=== PATIENT | male | born 1970 | race Caucasian/White ===

== ENCOUNTER 2019-04-18 10:34 | Inpatient (IN) | payer MEDICAID, OTHER ==
[2019-04-18] MEDS ORDERED: Adacel Vial IM ONE ×2 (10:48→11:06)
[2019-04-18] MEDS ORDERED: Vancomycin 1GM/ Ns 250ML*** 1 GM/250 ML IVPB IV SCH (11:00)
[2019-04-18] MEDS ORDERED: Vancomycin 1GM/ Ns 250ML*** 0 ML IV ONE (11:07)
--- NOTE | 2019-04-18 11:08 | ERPHSYRPT ---
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 Patient A+O X3. Patient's skin pink, warm and dry. Patient complains of right lower leg pain. Patient has right lower leg swelling and redness and warmth. Pulse present. Patient complains of constant pressure pain 10/10. Physician History: Right knee pain and cellulitis. 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 External pain only. Location: right leg Quality: cellulitis Radiation: down right leg Severity: moderate Duration: 2-3 days Timing: gradual Modifying factors/associated signs and symptoms: none tried Allergies/Adverse Reactions: No Known Drug Allergies Allergy (Unverified 04/18/19 10:45) Home Medications: Amiodarone HCl 1 tab PO DAILY 04/18/19 [History] Lisinopril 20 mg [Zestril 20 MG] 1 tab PO DAILY 04/18/19 [History] Metoprolol Tartrate 25 mg [Lopressor 25MG Tab] 1 tab PO DAILY 04/18/19 [ History] Rivaroxaban [Xarelto] 1 tab PO DAILY 04/18/19 [History] Hx Influenza Vaccination/Date Given: No Hx Pneumococcal Vaccination/Date Given: No Immunizations Up to Date: Yes - Review of Systems Constitutional: No Fever, No Chills Eyes: No Symptoms Ears, Nose, & Throat: No Symptoms Respiratory: No Cough, No Dyspnea Cardiac: No Chest Pain, No Edema, No Syncope Abdominal/Gastrointestinal: No Abdominal Pain, No Nausea, No Vomiting, No Diarrhea Genitourinary Symptoms: No Dysuria Musculoskeletal: Other (right knee pain and cellulitis ), No Back Pain, No Neck Pain Skin: No Rash Neurological: No Dizziness, No Focal Weakness, No Sensory Changes Psychological: No Symptoms Endocrine: No Symptoms All Other Systems: Reviewed and Negative - Past Medical History Pertinent Past Medical History: No Neurological History: No Pertinent History ENT History: No Pertinent History Cardiac History: Arrhythmia, Congestive Heart Failure, Hypertension Respiratory History: No Pertinent History Endocrine Medical History: No Pertinent History Musculoskeletal History: No Pertinent History GI Medical History: No Pertinent History History: No Pertinent History Psycho-Social History: No Pertinent History Male Reproductive Disorders: No Pertinent History - Past Surgical History Past Surgical History: No Neuro Surgical History: No Pertinent History Cardiac: No Pertinent History Respiratory: No Pertinent History Gastrointestinal: No Pertinent History Genitourinary: No Pertinent History Musculoskeletal: No Pertinent History Male Surgical History: No Pertinent History - Social History Smoking Status: Current every day smoker How long have you smoked: years Exposure to second hand smoke: Yes Drug Use: none Patient Lives Alone: No (Care Home) - Nursing Vital Signs Nursing Vital Signs: Initial Vital Signs Temperature 98.9 F 04/18/19 10:46 Pulse Rate 121 H 04/18/19 10:46 Respiratory Rate 20 04/18/19 10:46 Blood Pressure 116/76 04/18/19 10:46 O2 Sat by Pulse Oximetry 97 04/18/19 10:46 Pain Scale Pain Intensity 10 - Physical Exam SpO2: 97 Comments: 04/18/19 11:06 Physical Exam Vitals signsand nursing notereviewed. Constitutional: Appearance: She is well-developed. HENT: Head: Normocephalicand atraumatic. Eyes: Conjunctiva/sclera: Conjunctivae normal. Neck: Musculoskeletal: Normal range of motion. Trachea: No tracheal deviation. Cardiovascular: Rate and Rhythm: Normal rate. Pulmonary: Effort: Pulmonary effort is normal. Norespiratory distress. Abdominal: Palpations: Abdomen is soft. Musculoskeletal: General: No deformity. right lower leg cellulitis. no obvious abscess or flucant area. No obvious deformity, sensation intact, 2+ capillary refill, 2 point tactile discrimination intact. 5 out of 5 strength. Full range of motion without pain. Compartments are soft, nontender. Overlying skin shows no tenting, bruising, ecchymosis. Skin: General: Skin is warmand dry. Neurological: Mental Status: She is alertand oriented to person, place, and time. Psychiatric: Behavior: Behaviornormal. Ordered Tests: Active Orders 24 hr Category Date Time Status Code Status Order ROUTINE Care 04/18/19 11:50 Ordered Fall Protocol ROUTINE Care 04/18/19 11:52 Ordered IV Care Q6H Care 04/18/19 11:50 Ordered IV Insertion STAT Care 04/18/19 10:[address] in Observation ROUTINE Care 04/18/19 11:50 Ordered Wound Care STAT Care 04/18/19 10:48 Active BLOOD CULTURE Stat Lab 04/18/19 11:10 Received CBC W DIFF AM.LAB Lab 04/19/19 04:00 Ordered CBC W DIFF Stat Lab 04/18/19 11:00 Completed CMP AM.LAB Lab 04/19/19 04:00 Ordered CMP Stat Lab 04/18/19 11:00 Completed Lactic Acid AM.LAB Lab 04/19/19 04:00 Ordered Lactic Acid Stat Lab 04/18/19 11:03 Completed Manual Differential NC Stat Lab 04/18/19 11:00 Completed Medication Summary Generic Name Dose Route Start Last Admin Trade Name Freq PRN Reason Stop Dose Admin Vancomycin HCl 2 gm in 400 mls @ 200 mls/hr 04/18/19 11:30 04/18/19 11:17 Vancomycin 2 Gram/400 Ml Bag IV 04/18/19 13:29 200 mls/hr 1130 SAVITA 200 mls/hr Administration Discontinued Medications Generic Name Dose Route Start Last Admin Trade Name Freq PRN Reason Stop Dose Admin Diphtheria/Tetanus/Acell Pertussis 0.5 ml 04/18/19 10:48 04/18/19 11:09 Adacel Vial IM 04/18/19 10:49 0.5 ml .ONCE ONE Administration Diphtheria/Tetanus/Acell Pertussis Confirm 04/18/19 11:06 Adacel Vial Administered 04/18/19 11:07 Dose 0.5 ml IM .STK-MED ONE Vancomycin HCl Confirm 04/18/19 11:07 Vancomycin 1gm/ Ns 250ml Administered 04/18/19 11:08 Dose 250 mls @ ud IV .STK-MED ONE Lab/Rad Data: Laboratory Result Diagrams 04/18/19 11:00 04/18/19 11:00 Laboratory Results 04/18/19 04/18/19 04/18/19 Range/Units 11:03 11:00 11:00 WBC 15.6 H (4.0-10.5) K/mm3 RBC 4.89 (4.1-5.6) M/mm3 Hgb 14.6 (12.5-18.0) gm/dl Hct 44.6 (42-50) % MCV 91.2 (78-100) fl MCH 29.9 (26-32) pg MCHC 32.7 (32-36) g/dl RDW 14.2 H (11.5-14.0) % Plt Count 234 (150-450) K/mm3 MPV 9.8 (7.5-11.0) fl Sodium 136 L (137-145) mmol/L Potassium 4.7 (3.5-5.1) mmol/L Chloride 102 (98-107) mmol/L Carbon Dioxide 26 (22-30) mmol/L Anion Gap 11.9 (5-15) MEQ/L BUN 15 (9-20) mg/dL Creatinine 1.00 (0.66-1.25) mg/dL Estimated GFR > 60.0 ML/MIN Glucose 101 (74-106) mg/dL Lactic Acid 0.9 (0.4-2.0) Calcium 9.5 (8.4-10.2) mg/dL Total Bilirubin 1.30 (0.2-1.3) mg/dL AST 201 H (17-59) U/L ALT 517 H (0-50) U/L Alkaline Phosphatase 102 (38-126) U/L Serum Total Protein 8.2 (6.3-8.2) g/dL Albumin 4.1 (3.5-5.0) g/dL - Progress Progress: improved Progress Note: 04/18/19 11:08 We will obtain basic labs, IV antibiotics, fluids. 04/18/19 11:53 Patient has elevated WBC and LFTs. LFTs elevation is new. He has no abdominal pain, N/V. This is new. I did discuss with Dr. Alfonso he will admit the patient and continue further workup for elevated LFTs and cellulitis. Low suspension for septic joint at this point in time. No joint effusion, pain with ROM of the right knee. Most likely just cellulitis at this point. Although , close monitoring is needed. After reviewing labs, appropriate imaging, discussion with patient and family. We decided the patient should be admitted to the hospital. I called the inpatient team discussed history, physical and results with them in detail. We decided on the plan of action and admission to [facility]. We agreed on appropriate consults and who would call them. Discussed with : Andie Will see patient in: hospital (observation) Counseled pt/family regarding: drug and/or alcohol abuse, lab results, diagnosis - Departure Departure Disposition: Observation Clinical Impression: Cellulitis of right leg Condition: Stable Critical Care Time: No Referrals: FARNAZ ALFONSO [Primary Care Provider] -
[2019-04-18 11:18] LABS: Hematocrit 44.6 % (42-50); Hemoglobin 14.6 gm/dl (12.5-18.0); Mean Cell Volume 91.2 fl (78-100); Mean Corpuscular Hemoglobin 29.9 pg (26-32); Mean Corpuscular Hgb Concent. 32.7 g/dl (32-36); Mean Platelet Volume 9.8 fl (7.5-11.0); Platelet Count 234 K/mm3 (150-450); Red Blood Count 4.89 M/mm3 (4.1-5.6); Red Cell Distribution Width 14.2 % (11.5-14.0); White Blood Count 15.6 K/mm3 (4.0-10.5)
[2019-04-18] MEDS ORDERED: VANCOMYCIN 2 GRAM/400 ML BAG 2 GM/400 ML PIGGYBACK IV SCH (11:30)
[2019-04-18 11:31] LABS: ALBUMIN 4.1 g/dL (3.5-5.0); ALKALINE PHOSPHATASE 102 U/L (38-126); ANION GAP 11.9 MEQ/L (5-15); BLOOD UREA NITROGEN 15 mg/dL (9-20); CHLORIDE 102 mmol/L (98-107); Calcium 9.5 mg/dL (8.4-10.2); Carbon Dioxide 26 mmol/L (22-30); Glucose 101 mg/dL (74-106); Potassium 4.7 mmol/L (3.5-5.1); SGOT/AST 201 U/L (17-59); SGPT/ALT 517 U/L (0-50); SODIUM 136 mmol/L (137-145); Total Protein 8.2 g/dL (6.3-8.2)
[2019-04-18] MEDS ORDERED: MORPHINE SULFATE 2 MG INJ IV PRN (11:50)
[2019-04-18 11:57] LABS: ANISOCYTOSIS 1+; Eosinophil 1 % (0.00-3.0); Lymphocytes 19 % (24-44); Monocyte 5 % (0.0-12.0); Neutrophils 75 % (36.-66.); Platelet Estimate NORMAL (NORMAL); Total Cells Counted 100
[2019-04-18] MEDS: BACTRIM DS TABLET PO SCH ×2 (16:06→20:34)
[2019-04-18] MEDS ORDERED: TYLENOL EXTRA STRENGTH 500 MG ONE (16:37)
[2019-04-18] MEDS: TYLENOL EXTRA STRENGTH 500 MG PO SCH (17:05)
[2019-04-18] MEDS: VANCOMYCIN 2 GRAM/400 ML BAG 2 GM/400 ML PIGGYBACK IV SCH (20:33)
[2019-04-18] MEDS: Cordarone 200 MG PO SCH (20:34)
[2019-04-18] MEDS ORDERED: KEFLEX 500 MG PO SCH (22:00)
[2019-04-19] MEDS: BACTRIM DS TABLET PO SCH ×3 (00:03→21:43)
[2019-04-19 05:05] LABS: Hemoglobin 13.7 gm/dl (12.5-18.0); Mean Cell Volume 90.5 fl (78-100); Mean Corpuscular Hemoglobin 30.2 pg (26-32); Mean Corpuscular Hgb Concent. 33.4 g/dl (32-36); Mean Platelet Volume 10.1 fl (7.5-11.0); Platelet Count 224 K/mm3 (150-450); Red Blood Count 4.53 M/mm3 (4.1-5.6); Red Cell Distribution Width 14.3 % (11.5-14.0); White Blood Count 14.9 K/mm3 (4.0-10.5)
[2019-04-19 05:19] LABS: ALBUMIN 3.8 g/dL (3.5-5.0); ALKALINE PHOSPHATASE 92 U/L (38-126); ANION GAP 12.4 MEQ/L (5-15); BLOOD UREA NITROGEN 18 mg/dL (9-20); CHLORIDE 102 mmol/L (98-107); Carbon Dioxide 23 mmol/L (22-30); Creatinine 1 1.01 mg/dL (0.66-1.25); Glucose 100 mg/dL (74-106); Potassium 4.5 mmol/L (3.5-5.1); SGOT/AST 129 U/L (17-59); SGPT/ALT 376 U/L (0-50); SODIUM 133 mmol/L (137-145); Total Protein 7.8 g/dL (6.3-8.2)
[2019-04-19 05:53] LABS: Lymphocytes 29 % (24-44); Monocyte 5 % (0.0-12.0); Neutrophils 66 % (36.-66.); Total Cells Counted 100
[2019-04-19 05:54] LABS: Platelet Estimate NORMAL (NORMAL)
[2019-04-19 09:08] LABS: HEPATITIS A IGM Non Reactive (Non Reactive); HEPATITIS B VIRUS CORE TOT AB Reactive (Non Reactive); HEPATITIS C VIRUS ANTIBODY Weak Reactive (Non Reactive); Hepatitis B Surface Ab.Quant. 4.51 mIU/mL (0.00-8.49); Hepatitis B Surface Antigen Non Reactive (Non Reactive)
[2019-04-19] MEDS: VANCOMYCIN 2 GRAM/400 ML BAG 2 GM/400 ML PIGGYBACK IV SCH ×2 (09:37→21:42)
[2019-04-19] MEDS: Lopressor 25MG Tab PO SCH (09:37)
[2019-04-19] MEDS: TYLENOL EXTRA STRENGTH 500 MG PO SCH (09:37)
[2019-04-19] MEDS: XARELTO 10 MG TABLET PO SCH (09:38)
[2019-04-19] MEDS: Cordarone 200 MG PO SCH ×2 (09:38→21:43)
[2019-04-19] MEDS: Zestril 20 MG PO SCH (09:38)
[2019-04-19] MEDS ORDERED: RIVAROXABAN PO SCH (10:00)
--- NOTE | 2019-04-19 11:38 | PCM.NOTE ---
Date and Time: 04/19/19 8606 Subjective Assessment: I am seeing patient today for Dr Alfonso. Patient states he is tolerating IV vancomycin. His right knee is sore and feeling feverish. Is eating a regular diet . No V/D. Has Hx ETOH abuse states 10 years ago or so he drank whiskey daily but no ETOH abuse for years. Discussed the mild elevation of liver enzymes. Patient is asymptomatic ,no abdominal pain or greasy food intolerance.Patient states he had an abcess mid chest a few years ago. - Review of Systems Constitutional: Other (c/o feeling feverish ) Respiratory: No Symptoms Cardiac: No Symptoms Abdominal/Gastrointestinal: No Symptoms Skin: Cellulitis (right knee/leg) Objective Exam General Appearance: no apparent distress, mild distress Neurologic Exam: alert, oriented x 3, cooperative, normal mood/affect Skin Exam: other (right knee with central pustule and surrounding redness and increased temp.slightly less than the line drawn in ER.) Wound Assessment: Skin/Wound Assessment Wound/Incision Assessment Start: 04/18/19 12: 19 Text: Status: Active Freq: Q6H Protocol: Document 04/19/19 08:00 DS (Rec: 04/19/19 09:01 DS [id number]) Wound/Incision Assessment Right Anterior Thigh Wound Assessment Shift Assessment Wound Type cellulitis Wound Stage Non Pressure Wound Drainage Amount None Drainage Odor None/Absent Surrounding Tissue [place] Comment reddened, warm to touch, no drainage, small abrasion to knee, small bump noted inner aspect by side of knee Wound Photo Photo Taken No Wound/Incision Assessment Start: 04/18/19 13: 04 Text: Status: Active Freq: Q6H Protocol: Document 04/19/19 08:00 DS (Rec: 04/19/19 09:01 DS [id number]) Respiratory Exam: normal breath sounds, lungs clear Cardiovascular Exam: regular rate/rhythm OBJECTIVE DATA Vital Signs: Vital Signs - 24 hr Temp Pulse Resp BP Pulse Ox 04/19/19 08:00 99.8 F 148 H 18 125/58 95 04/19/19 04:00 100.4 F 143 H 18 110/64 96 04/19/19 00:08 99.9 F 140 H 18 102/61 93 L 04/18/19 20:00 99.6 F 70 20 122/80 95 04/18/19 16:48 97.8 F 135 H 28 H 138/82 04/18/19 16:00 101.5 F 83 18 144/69 97 04/18/19 12:26 99.3 F 113 H 18 111/72 98 04/18/19 12:21 99.3 F 113 H 18 111/72 98 04/18/19 11:55 97 04/18/19 11:36 115 H 18 112/69 96 Pain Assessment - Last Documented Pain Intensity 3 Pain Scale Used 0-10 Pain Scale Intake and Output: Intake & Output 04/16/19 04/17/19 04/18/19 04/19/19 11:59 11:59 11:59 11:59 Intake Total 3256 Balance 3256 Weight 108.862 kg 108.862 kg Lab Results: Lab Results-Last 24 Hours 04/18/19 04/18/19 04/18/19 Range/Units 11:00 11:00 Unknown WBC (4.0-10.5) K/mm3 RBC (4.1-5.6) M/mm3 Hgb (12.5-18.0) gm/dl Hct (42-50) % MCV (78-100) fl MCH (26-32) pg MCHC (32-36) g/dl RDW (11.5-14.0) % Plt Count (150-450) K/mm3 MPV (7.5-11.0) fl Segmented Neutrophils 75 H (36.-66.) % Lymphocytes (Manual) 19 L (24-44) % Monocytes (Manual) 5 (0.0-12.0) % Eosinophils (Manual) 1 (0.00-3.0) % Platelet Estimate NORMAL (NORMAL) RBC Morphology ABNORMAL Anisocytosis 1+ Sodium 136 L (137-145) mmol/L Potassium 4.7 (3.5-5.1) mmol/L Chloride 102 (98-107) mmol/L Carbon Dioxide 26 (22-30) mmol/L Anion Gap 11.9 (5-15) MEQ/L BUN 15 (9-20) mg/dL Creatinine 1.00 (0.66-1.25) mg/dL Estimated GFR > 60.0 ML/MIN Glucose 101 (74-106) mg/dL Lactic Acid (0.4-2.0) Calcium 9.5 (8.4-10.2) mg/dL Total Bilirubin 1.30 (0.2-1.3) mg/dL AST 201 H (17-59) U/L ALT 517 H (0-50) U/L Alkaline Phosphatase 102 (38-126) U/L Serum Total Protein 8.2 (6.3-8.2) g/dL Albumin 4.1 (3.5-5.0) g/dL Hepatitis A IgM Ab Non Reactive (Non Reactive) Hep Bs Antigen Non Reactive (Non Reactive) Hep Bs Antibody, Quant 4.51 (0.00-8.49) mIU/mL Hep B Core Total Ab Reactive H (Non Reactive) Hepatitis C Antibody Weak Reactive H (Non Reactive) 04/19/19 04/19/19 04/19/19 Range/Units 04:25 04:25 04:50 WBC 14.9 H (4.0-10.5) K/mm3 RBC 4.53 (4.1-5.6) M/mm3 Hgb 13.7 (12.5-18.0) gm/dl Hct 41.0 L (42-50) % MCV 90.5 (78-100) fl MCH 30.2 (26-32) pg MCHC 33.4 (32-36) g/dl RDW 14.3 H (11.5-14.0) % Plt Count 224 (150-450) K/mm3 MPV 10.1 (7.5-11.0) fl Segmented Neutrophils 66 (36.-66.) % Lymphocytes (Manual) 29 (24-44) % Monocytes (Manual) 5 (0.0-12.0) % Eosinophils (Manual) (0.00-3.0) % Platelet Estimate NORMAL (NORMAL) RBC Morphology NORMAL Anisocytosis Sodium 133 L (137-145) mmol/L Potassium 4.5 (3.5-5.1) mmol/L Chloride 102 (98-107) mmol/L Carbon Dioxide 23 (22-30) mmol/L Anion Gap 12.4 (5-15) MEQ/L BUN 18 (9-20) mg/dL Creatinine 1.01 (0.66-1.25) mg/dL Estimated GFR > 60.0 ML/MIN Glucose 100 (74-106) mg/dL Lactic Acid 1.0 (0.4-2.0) Calcium 9.0 (8.4-10.2) mg/dL Total Bilirubin 0.80 (0.2-1.3) mg/dL AST 129 H (17-59) U/L ALT 376 H (0-50) U/L Alkaline Phosphatase 92 (38-126) U/L Serum Total Protein 7.8 (6.3-8.2) g/dL Albumin 3.8 (3.5-5.0) g/dL Hepatitis A IgM Ab (Non Reactive) Hep Bs Antigen (Non Reactive) Hep Bs Antibody, Quant (0.00-8.49) mIU/mL Hep B Core Total Ab (Non Reactive) Hepatitis C Antibody (Non Reactive) Multi-Disciplinary Progress Notes: Multi-Disciplinary Progress Notes 04/19/19 08:29 Case Management Note by Nilsa Sanchez per Migdalia patient is under custody of [facility] and will return there upon DC Initialized on 04/19/19 08:29 - END OF NOTE Assessment/Plan (1) Cellulitis of right leg Current Visit: Yes Status: Acute Assessment & Plan: continue Vancomycin IV,treat with [place] shower today and tomorrow and start Bactroban intranasal x 2 weeks Code(s): L03.115 - CELLULITIS OF RIGHT LOWER LIMB (2) Elevated liver function tests Current Visit: Yes Status: Acute Assessment & Plan: Hx ETOH abuse. Hepatitis profile pending. Code(s): R94.5 - ABNORMAL RESULTS OF LIVER FUNCTION STUDIES
[2019-04-19] MEDS: Bactroban OINTMENT TP SCH ×2 (15:49→21:43)
[2019-04-19] MEDS: TYLENOL 325 MG PO PRN (19:33)
[2019-04-20] MEDS ORDERED: TROUGH DRUG LEVELS IJ ONE (09:30)
[2019-04-20] MEDS: Cordarone 200 MG PO SCH ×2 (09:58→21:53)
[2019-04-20] MEDS: BACTRIM DS TABLET PO SCH ×2 (09:58→21:53)
[2019-04-20] MEDS: XARELTO 10 MG TABLET PO SCH (09:59)
[2019-04-20] MEDS: TYLENOL EXTRA STRENGTH 500 MG PO SCH (09:59)
[2019-04-20] MEDS: Zestril 20 MG PO SCH (09:59)
[2019-04-20] MEDS: Lopressor 25MG Tab PO SCH (09:59)
[2019-04-20] MEDS: Bactroban OINTMENT TP SCH ×2 (10:03→21:53)
--- NOTE | 2019-04-20 10:21 | XRAY ---
Indication: Anterior knee pain and swelling. Two-dimensional sonogram and color Doppler imaging of the major venous vessels of the right leg was performed. Comparison: None No thrombus seen in the examined deep venous vessels of the right leg including greater saphenous vein. Veins demonstrate normal compressibility. Venous waveforms are normal with and without augmentation. Targeted soft tissue ultrasound over region of pain/swelling demonstrates nonspecific subcutaneous fluid collection measuring 5.3 cm in length and 0.9 cm in thickness. Impression: 1. Right leg negative for DVT. 2. Nonspecific subcutaneous fluid collection over region of pain/swelling.
[2019-04-20] MEDS: VANCOMYCIN 2 GRAM/400 ML BAG 2 GM/400 ML PIGGYBACK IV SCH ×2 (10:45→21:52)
[2019-04-20] MEDS: TYLENOL 325 MG PO PRN (18:42)
[2019-04-21 05:00] LABS: Absolute Neutrophil Ct (ANC) 5.22 (1.4-6.9); BASOPHIL % 0.6 % (0.0-0.4); Basophil (Absolute #) 0.05 (0-0.4); Eosinophil % 6.4 % (0.00-5.0); Eosinophil (Absolute #) 0.55 (0-0.5); Hematocrit 38.1 % (42-50); Hemoglobin 12.3 gm/dl (12.5-18.0); Lymphocyte (Absolute #) 1.66 (1.0-4.6); Lymphocytes % 19.2 % (24.0-44.0); Mean Cell Volume 93.4 fl (78-100); Mean Corpuscular Hemoglobin 30.1 pg (26-32); Mean Corpuscular Hgb Concent. 32.3 g/dl (32-36); Mean Platelet Volume 9.7 fl (7.5-11.0); Monocyte (Absolute #) 1.18 (0.0-1.3); Monocytes % 13.6 % (0.0-12.0); Neutrophil % 60.2 % (36.0-66.0); Platelet Count 215 K/mm3 (150-450); Red Blood Count 4.08 M/mm3 (4.1-5.6); Red Cell Distribution Width 14.1 % (11.5-14.0); White Blood Count 8.7 K/mm3 (4.0-10.5)
[2019-04-21 05:08] LABS: ALBUMIN 3.5 g/dL (3.5-5.0); ALKALINE PHOSPHATASE 81 U/L (38-126); ANION GAP 9.8 MEQ/L (5-15); BLOOD UREA NITROGEN 13 mg/dL (9-20); CHLORIDE 104 mmol/L (98-107); Calcium 8.9 mg/dL (8.4-10.2); Carbon Dioxide 27 mmol/L (22-30); Creatinine 1 0.89 mg/dL (0.66-1.25); Glucose 93 mg/dL (74-106); Potassium 4.9 mmol/L (3.5-5.1); SGOT/AST 118 U/L (17-59); SGPT/ALT 277 U/L (0-50); SODIUM 136 mmol/L (137-145); Total Protein 7.3 g/dL (6.3-8.2)
[2019-04-21] MEDS: Zestril 20 MG PO SCH (10:43)
[2019-04-21] MEDS: Cordarone 200 MG PO SCH ×2 (10:43→22:25)
[2019-04-21] MEDS: XARELTO 10 MG TABLET PO SCH (10:43)
[2019-04-21] MEDS: BACTRIM DS TABLET PO SCH ×2 (10:44→22:25)
[2019-04-21] MEDS: Lopressor 25MG Tab PO SCH (10:44)
[2019-04-21] MEDS: Bactroban OINTMENT TP SCH ×2 (10:44→22:25)
[2019-04-21] MEDS: TYLENOL EXTRA STRENGTH 500 MG PO SCH (10:44)
[2019-04-21] MEDS: VANCOMYCIN 2 GRAM/400 ML BAG 2 GM/400 ML PIGGYBACK IV SCH ×2 (10:45→22:25)
[2019-04-22 06:17] LABS: BASOPHIL % 1.1 % (0.0-0.4); Basophil (Absolute #) 0.06 (0-0.4); Eosinophil % 10.6 % (0.00-5.0); Eosinophil (Absolute #) 0.58 (0-0.5); Hemoglobin 13.3 gm/dl (12.5-18.0); Lymphocyte (Absolute #) 1.42 (1.0-4.6); Mean Cell Volume 92.3 fl (78-100); Mean Corpuscular Hgb Concent. 32.4 g/dl (32-36); Mean Platelet Volume 10.3 fl (7.5-11.0); Monocytes % 14.7 % (0.0-12.0); Neutrophil % 47.6 % (36.0-66.0); Platelet Count 220 K/mm3 (150-450); Red Blood Count 4.44 M/mm3 (4.1-5.6); Red Cell Distribution Width 14.3 % (11.5-14.0); White Blood Count 5.5 K/mm3 (4.0-10.5)
[2019-04-22 06:37] LABS: ALBUMIN 3.6 g/dL (3.5-5.0); ALKALINE PHOSPHATASE 93 U/L (38-126); ANION GAP 11.2 MEQ/L (5-15); BLOOD UREA NITROGEN 11 mg/dL (9-20); CHLORIDE 105 mmol/L (98-107); Calcium 9.1 mg/dL (8.4-10.2); Carbon Dioxide 26 mmol/L (22-30); Creatinine 1 0.79 mg/dL (0.66-1.25); Glucose 96 mg/dL (74-106); Potassium 4.5 mmol/L (3.5-5.1); SGOT/AST 159 U/L (17-59); SGPT/ALT 317 U/L (0-50); SODIUM 137 mmol/L (137-145); Total Protein 7.6 g/dL (6.3-8.2)
[2019-04-22] MEDS: VANCOMYCIN 2 GRAM/400 ML BAG 2 GM/400 ML PIGGYBACK IV SCH ×2 (10:27→21:04)
[2019-04-22] MEDS: BACTRIM DS TABLET PO SCH ×2 (10:30→21:03)
[2019-04-22] MEDS: TYLENOL EXTRA STRENGTH 500 MG PO SCH (10:30)
[2019-04-22] MEDS: XARELTO 10 MG TABLET PO SCH (10:30)
[2019-04-22] MEDS: Cordarone 200 MG PO SCH ×2 (10:31→21:03)
[2019-04-22] MEDS: Lopressor 25MG Tab PO SCH (10:31)
[2019-04-22] MEDS: Zestril 20 MG PO SCH (10:31)
[2019-04-22] MEDS: Bactroban OINTMENT TP SCH ×2 (10:32→21:04)
[2019-04-23] MEDS: Lopressor 25MG Tab PO SCH (10:05)
[2019-04-23] MEDS: Zestril 20 MG PO SCH (10:05)
[2019-04-23] MEDS: XARELTO 10 MG TABLET PO SCH (10:05)
[2019-04-23] MEDS: TYLENOL EXTRA STRENGTH 500 MG PO SCH (10:05)
[2019-04-23] MEDS: BACTRIM DS TABLET PO SCH (10:05)
[2019-04-23] MEDS: VANCOMYCIN 2 GRAM/400 ML BAG 2 GM/400 ML PIGGYBACK IV SCH (10:05)
[2019-04-23] MEDS: Bactroban OINTMENT TP SCH (10:06)
[2019-04-23] MEDS: Cordarone 200 MG PO SCH (10:06)
[2019-04-23 14:16] VITALS: BP 139/82; PULSE 104; O2SAT 99
--- NOTE | 2019-04-24 13:23 | DS ---
DISCHARGE DIAGNOSIS: CELLULITIS AND WOUND ABSCESS OVER THE RIGHT KNEE. HOSPITAL COURSE: The patient is a 48 year-old white male who presented to the emergency room with complaints of pimple-like area on his right knee which became bright red and warm and extended extensively up and down the leg to about the mid-thigh and down to about the ankle. Bright red, warm and tender when he first arrived. The patient's pimple area did eventually develop an abscess which drained initially thick purulent material. The culture did return methicillin resistant staphylococcus aureus but it was sensitive to Bactrim and Levaquin. He had been treated with IV Vancomycin and Bactrim during his stay. The culture did show sensitivity to both Bactrim and Vancomycin. After the wound started draining became much better. The redness had greatly diminished. The pain has essentially resolved. He did have some serosanguinous drainage from the area on the morning of 04/23/2019. He was felt to be ready for discharge at this time. He will be discharged on Levaquin 500 mg a day for an additional week and Bactrim DS twice a day for a week and then he will have suppressive management of Bactrim DS daily for an additional three months as he has had previous methicillin resistant staphylococcus aureus wounds especially in the left elbow. The patient also now was instructed to use Hibiclens over those areas and follow with Bactroban ointment.
== END 2019-04-23 15:05 | disposition home or self-care (01) | DRG 603 ==
LOC: ED 10:34 → MED SURG 12:14 → OBSVTOIN 04-19 11:34
PROVIDERS: ADMIT Family Medicine; ATTEND Family Medicine
DX: L03.115 Cellulitis of right lower limb (principal); B95.62 Methicillin resistant Staphylococcus aureus infection as the cause of diseases classified elsewhere; R94.5 Abnormal results of liver function studies; Z79.899 Other long term (current) drug therapy
CPT/HCPCS: 36000; 36415; 80053; 80074; 80202; 83605; 85025; 87040; 87070; 87077; 87186; 90471; 90715; 93971; 96365; 99285; G0378; J3370; A9270-GY

== ENCOUNTER 2020-03-05 22:21 | Emergency (ER) | payer MEDICAID, OTHER ==
--- NOTE | 2020-03-05 22:34 | ERPHSYRPT ---
- History of Present Illness Time Seen by Provider: 03/05/20 22:39 Source: patient Physician History: Patient is a 49-year-old male with a history of atrial fibrillation presents to our ED and atrial fibrillation with RVR. Patient has not taken his medication in several weeks. Patient states he was incarcerated for 90 days. He was given his medicine at that time however upon his discharge he did not have insurance and could not fill his prescriptions. Approximately 30 minutes prior to arrival patient states that he felt dizzy. His head was spinning. 911 was called. Patient's rhythm was A. fib with RVR. Timing/Duration: today Severity: moderate Modifying Factors: Improves With: nothing Associated Symptoms: No vomiting, No abdominal pain, No shortness of breath, No heartburn, No diaphoresis, No cough, No chills, No chest pain, No fever, No headaches, No loss of appetite, No malaise, No syncope, No seizure, No weakness Allergies/Adverse Reactions: No Known Drug Allergies Allergy (Unverified 03/05/20 22:26) Hx Influenza Vaccination/Date Given: No Hx Pneumococcal Vaccination/Date Given: No - Review of Systems Constitutional: No Symptoms, No Fever, No Chills Eyes: No Symptoms Ears, Nose, & Throat: No Symptoms Respiratory: No Symptoms, No Cough, No Dyspnea Cardiac: No Symptoms, No Chest Pain, No Edema, No Syncope Abdominal/Gastrointestinal: No Symptoms, No Abdominal Pain, No Nausea, No Vomiting, No Diarrhea Genitourinary Symptoms: No Symptoms, No Dysuria Musculoskeletal: No Symptoms, No Back Pain, No Neck Pain Skin: No Symptoms, No Rash Neurological: No Symptoms, No Dizziness, No Focal Weakness, No Sensory Changes Psychological: No Symptoms Endocrine: No Symptoms Hematologic/Lymphatic: No Symptoms Immunological/Allergic: No Symptoms All Other Systems: Reviewed and Negative - Past Medical History Pertinent Past Medical History: No Neurological History: No Pertinent History ENT History: No Pertinent History Cardiac History: Congestive Heart Failure, High Cholesterol Respiratory History: No Pertinent History Endocrine Medical History: No Pertinent History Musculoskeletal History: No Pertinent History GI Medical History: No Pertinent History History: No Pertinent History Psycho-Social History: Depression Male Reproductive Disorders: No Pertinent History - Past Surgical History Past Surgical History: Yes Neuro Surgical History: No Pertinent History Cardiac: No Pertinent History Respiratory: No Pertinent History Gastrointestinal: Appendectomy Genitourinary: No Pertinent History Musculoskeletal: No Pertinent History Male Surgical History: No Pertinent History Other Surgical History: stomach surgery as a child - Social History Smoking Status: Former smoker How long have you smoked: years Exposure to second hand smoke: No Drug Use: none Patient Lives Alone: No ([facility]) - Nursing Vital Signs Nursing Vital Signs: Initial Vital Signs Temperature 98.5 F 03/05/20 22:32 Pulse Rate 163 H 03/05/20 22:32 Respiratory Rate 22 03/05/20 22:32 Blood Pressure 137/101 03/05/20 22:32 O2 Sat by Pulse Oximetry 100 03/05/20 22:32 Pain Scale Pain Intensity 0 - Physical Exam General Appearance: no apparent distress, alert Eye Exam: PERRL/EOMI, eyes nml inspection Ears, Nose, Throat Exam: normal ENT inspection, TMs normal, pharynx normal, moist mucous membranes Neck Exam: normal inspection, non-tender, supple, full range of motion Respiratory Exam: normal breath sounds, lungs clear, No respiratory distress Cardiovascular Exam: normal heart sounds, normal peripheral pulses, other (Atrial fibrillation with rapid ventricular response. Heart sounds normal.) Gastrointestinal/Abdomen Exam: soft, normal bowel sounds, No tenderness, No mass Back Exam: normal inspection, normal range of motion, No CVA tenderness, No vertebral tenderness Extremity Exam: normal inspection, normal range of motion, pelvis stable Neurologic Exam: alert, oriented x 3, cooperative, normal mood/affect, nml cerebellar function, nml station & gait, sensation nml, No motor deficits, No sensory deficit, No uncooperative, No intoxicated appearance Skin Exam: normal color, warm, dry, No rash Lymphatic Exam: No adenopathy SpO2 Interpretation: normal O2 Delivery: Room Air - Course Nursing assessment & vital signs reviewed: Yes EKG Interpreted by Me: RATE - CT Exams Head CT Interpretation: Tele-radiologist Report (CT head no acute intracranial abnormality.) Ordered Tests: Active Orders 24 hr Category Date Time Status Basket Operator STAT Care 03/05/20 22:28 Active EKG-ER Only STAT Care 03/05/20 22:26 Active IV Insertion STAT Care 03/05/20 22:26 Active Pulse Oximetry (ED) STAT Care 03/05/20 22:26 Active CHEST 1 VIEW (PORTABLE) Stat Exams 03/05/20 22:28 Taken HEAD WITHOUT CONTRAST [CT] Stat Exams 03/05/20 22:51 Taken CBC W DIFF Stat Lab 03/05/20 23:00 Completed CMP Stat Lab 03/05/20 23:00 Completed MAGNESIUM Stat Lab 03/05/20 23:00 Completed TROPONIN Q3H Lab 03/05/20 23:00 Completed TROPONIN Q3H Lab 03/06/20 01:30 Ordered TROPONIN Q3H Lab 03/06/20 04:30 Ordered TROPONIN Q3H Lab 03/06/20 07:30 Ordered TROPONIN Q3H Lab 03/06/20 10:30 Ordered Urine Triage Profile Stat Lab 03/05/20 23:28 Completed Medication Summary Generic Name Dose Route Start Last Admin Trade Name Freq PRN Reason Stop Dose Admin Sodium Chloride 1,000 mls @ 100 mls/hr 03/05/20 22:30 03/05/20 22:37 Sodium Chloride 0.9% 1000 Ml IV 04/04/20 22:29 100 mls/hr .Q10H SAVITA Administration Diltiazem HCl 100 mls @ 5 mls/hr 03/05/20 22:26 03/06/20 00:39 Cardizem Drip 100 Mg/100 Ml D5w IV 04/04/20 22:25 15 mg/hr .Q20H PRN 15 mls/hr HEART RATE/ A-FIB Titration Protocol 5 MG/HR Discontinued Medications Generic Name Dose Route Start Last Admin Trade Name Freq PRN Reason Stop Dose Admin Diltiazem HCl 15 mg 03/05/20 22:26 03/05/20 22:37 Cardizem Iv 50 Mg/10 Ml IV 03/05/20 22:27 15 mg STAT ONE Administration Diltiazem HCl Confirm 03/05/20 22:36 Cardizem Iv 50 Mg/10 Ml Administered 03/05/20 22:37 Dose 50 mg IV .STK-MED ONE Enoxaparin Sodium 100 mg 03/06/20 00:39 03/06/20 00:41 Enoxaparin Sodium SQ 03/06/20 00:40 100 mg 1XONLY ONE Administration Enoxaparin Sodium Confirm 03/06/20 00:40 Enoxaparin Sodium Administered 03/06/20 00:41 Dose 120 mg SQ .STK-MED ONE Lab/Rad Data: Laboratory Result Diagrams 03/05/20 23:00 03/05/20 23:00 Laboratory Results 03/05/20 03/05/20 03/05/20 Range/Units 23:28 23:00 23:00 WBC (4.0-10.5) K/mm3 RBC (4.1-5.6) M/mm3 Hgb (12.5-18.0) gm/dl Hct (42-50) % MCV (78-100) fl MCH (26-32) pg MCHC (32-36) g/dl RDW (11.5-14.0) % Plt Count (150-450) K/mm3 MPV (7.5-11.0) fl Gran % (36.0-66.0) % Eos # (Auto) (0-0.5) Absolute Lymphs (auto) (1.0-4.6) Absolute Monos (auto) (0.0-1.3) Lymphocytes % (24.0-44.0) % Monocytes % (0.0-12.0) % Eosinophils % (0.00-5.0) % Basophils % (0.0-0.4) % Absolute Granulocytes (1.4-6.9) Basophils # (0-0.4) Sodium 137 (137-145) mmol/L Potassium 4.2 (3.5-5.1) mmol/L Chloride 103 (98-107) mmol/L Carbon Dioxide 25 (22-30) mmol/L Anion Gap 13.3 (5-15) MEQ/L BUN 16 (9-20) mg/dL Creatinine 1.06 (0.66-1.25) mg/dL Estimated GFR > 60.0 ML/MIN Glucose 102 (74-106) mg/dL Calcium 10.1 (8.4-10.2) mg/dL Magnesium 2.0 (1.6-2.3) mg/dL Total Bilirubin 1.00 (0.2-1.3) mg/dL AST 95 H (17-59) U/L ALT 130 H (0-50) U/L Alkaline Phosphatase 81 (38-126) U/L Troponin I 0.028 (0.000-0.034) ng/mL Serum Total Protein 7.9 (6.3-8.2) g/dL Albumin 4.4 (3.5-5.0) g/dL Urine Opiates Level NEGATIVE (NEGATIVE) Ur Methadone NEGATIVE (NEGATIVE) Urine Barbiturates NEGATIVE (NEGATIVE) Ur Phencyclidine (PCP) NEGATIVE (NEGATIVE) Urine Amphetamine POSITIVE (NEGATIVE) U Benzodiazepine Level NEGATIVE (NEGATIVE) Urine Cocaine NEGATIVE (NEGATIVE) Urine Marijuana (THC) NEGATIVE (NEGATIVE) 03/05/20 Range/Units 23:00 WBC 9.0 (4.0-10.5) K/mm3 RBC 4.94 (4.1-5.6) M/mm3 Hgb 14.5 (12.5-18.0) gm/dl Hct 46.2 (42-50) % MCV 93.5 (78-100) fl MCH 29.4 (26-32) pg MCHC 31.4 L (32-36) g/dl RDW 13.8 (11.5-14.0) % Plt Count 170 (150-450) K/mm3 MPV 10.7 (7.5-11.0) fl Gran % 62.4 (36.0-66.0) % Eos # (Auto) 0.36 (0-0.5) Absolute Lymphs (auto) 2.12 (1.0-4.6) Absolute Monos (auto) 0.88 (0.0-1.3) Lymphocytes % 23.5 L (24.0-44.0) % Monocytes % 9.7 (0.0-12.0) % Eosinophils % 4.0 (0.00-5.0) % Basophils % 0.4 (0.0-0.4) % Absolute Granulocytes 5.63 (1.4-6.9) Basophils # 0.04 (0-0.4) Sodium (137-145) mmol/L Potassium (3.5-5.1) mmol/L Chloride (98-107) mmol/L Carbon Dioxide (22-30) mmol/L Anion Gap (5-15) MEQ/L BUN (9-20) mg/dL Creatinine (0.66-1.25) mg/dL Estimated GFR ML/MIN Glucose (74-106) mg/dL Calcium (8.4-10.2) mg/dL Magnesium (1.6-2.3) mg/dL Total Bilirubin (0.2-1.3) mg/dL AST (17-59) U/L ALT (0-50) U/L Alkaline Phosphatase (38-126) U/L Troponin I (0.000-0.034) ng/mL Serum Total Protein (6.3-8.2) g/dL Albumin (3.5-5.0) g/dL Urine Opiates Level (NEGATIVE) Ur Methadone (NEGATIVE) Urine Barbiturates (NEGATIVE) Ur Phencyclidine (PCP) (NEGATIVE) Urine Amphetamine (NEGATIVE) U Benzodiazepine Level (NEGATIVE) Urine Cocaine (NEGATIVE) Urine Marijuana (THC) (NEGATIVE) - Progress Progress: improved Progress Note: 03/06/20 01:28 Patient reassessed. He feels well. Kaden regarding admission to our hospital . Dr. Alfonso feels patient would be better served if we transfer him out to a facility that has cardiology immediately available. No chest pain. Case discussed with Dr. Velásquez ER physician at [facility] who accepts transfer. Heart rate with Cardizem maxed out is 120s. Patient talk screen positive for amphetamine. Dr. Garcia which advised a dose of beta-santiago. 2.5 mg of metoprolol IV ordered. Patient anticoagulated with Lovenox. Transfer paperwork completed. Patient voices no other complaints concerns at this time. Discussed with : Andie Will see patient in: other Counseled pt/family regarding: drug and/or alcohol abuse, lab results, diagnosis, rad results - Departure Departure Disposition: Transfer Clinical Impression: Atrial fibrillation with RVR, Amphetamine abuse, Non compliance with medical treatment Condition: Stable Critical Care Time: No Referrals: FARNAZ ALFONSO [Primary Care Provider] -
[2020-03-05] MEDS ORDERED: CARDIZEM DRIP 100 MG/100 ML D5W 100 ML IV ONE (22:36)
[2020-03-05] MEDS ORDERED: Sodium Chloride 0.9% 1000 ML 1,000 ML ONE (22:36)
[2020-03-05] MEDS ORDERED: Cardizem IV 50 MG/10 ML IV ONE (22:36)
[2020-03-05] MEDS: CARDIZEM DRIP 100 MG/100 ML D5W 100 ML IV PRN (22:37)
[2020-03-05] MEDS: Cardizem IV 50 MG/10 ML IV ONE (22:37)
[2020-03-05] MEDS: Sodium Chloride 0.9% 1000 ML 1,000 ML IV SCH (22:37)
[2020-03-05 23:11] LABS: Absolute Neutrophil Ct (ANC) 5.63 (1.4-6.9); BASOPHIL % 0.4 % (0.0-0.4); Basophil (Absolute #) 0.04 (0-0.4); Eosinophil (Absolute #) 0.36 (0-0.5); Hematocrit 46.2 % (42-50); Hemoglobin 14.5 gm/dl (12.5-18.0); Lymphocyte (Absolute #) 2.12 (1.0-4.6); Lymphocytes % 23.5 % (24.0-44.0); Mean Cell Volume 93.5 fl (78-100); Mean Corpuscular Hemoglobin 29.4 pg (26-32); Mean Corpuscular Hgb Concent. 31.4 g/dl (32-36); Mean Platelet Volume 10.7 fl (7.5-11.0); Monocyte (Absolute #) 0.88 (0.0-1.3); Monocytes % 9.7 % (0.0-12.0); Neutrophil % 62.4 % (36.0-66.0); Platelet Count 170 K/mm3 (150-450); Red Blood Count 4.94 M/mm3 (4.1-5.6); Red Cell Distribution Width 13.8 % (11.5-14.0)
[2020-03-05 23:22] LABS: ALBUMIN 4.4 g/dL (3.5-5.0); ALKALINE PHOSPHATASE 81 U/L (38-126); ANION GAP 13.3 MEQ/L (5-15); BLOOD UREA NITROGEN 16 mg/dL (9-20); CHLORIDE 103 mmol/L (98-107); Calcium 10.1 mg/dL (8.4-10.2); Carbon Dioxide 25 mmol/L (22-30); Creatinine 1 1.06 mg/dL (0.66-1.25); EST GLOMERULAR FILTRATION RATE > 60.0 ML/MIN; Glucose 102 mg/dL (74-106); Potassium 4.2 mmol/L (3.5-5.1); SGOT/AST 95 U/L (17-59); SGPT/ALT 130 U/L (0-50); SODIUM 137 mmol/L (137-145); Total Protein 7.9 g/dL (6.3-8.2)
[2020-03-05 23:48] LABS: Barbiturate,Urine NEGATIVE (NEGATIVE); Benzodiazepine,Urine NEGATIVE (NEGATIVE); Cocaine,Urine NEGATIVE (NEGATIVE); Methadone,Urine NEGATIVE (NEGATIVE); Opiate,Urine NEGATIVE (NEGATIVE); PCP,Urine NEGATIVE (NEGATIVE); THC,Urine NEGATIVE (NEGATIVE)
[2020-03-06 00:14] LABS: Amphetamine,Urine POSITIVE (NEGATIVE)
[2020-03-06] MEDS ORDERED: ENOXAPARIN SODIUM SQ ONE (00:40)
[2020-03-06] MEDS: ENOXAPARIN SODIUM SQ ONE (00:41)
[2020-03-06] MEDS ORDERED: LOPRESSOR 5 MG/5 ML INJECTION IV ONE (01:28)
[2020-03-06 01:29] VITALS: BP 118/81; PULSE 120; O2SAT 96
[2020-03-06] MEDS: LOPRESSOR 5 MG/5 ML INJECTION IV ONE (01:30)
--- NOTE | 2020-03-06 09:14 | XRAY ---
Indication: Chest pain. Comparison: February 26, 2010. Portable chest now hyperinflated with mild right infrahilar interstitial opacity and a few tiny calcified granulomas. Remaining lungs clear. Heart is not enlarged. Bony thorax intact with incidental mild dextroscoliosis. Impression: Right infrahilar interstitial opacity, possibly pneumonitis in the right clinical setting. Correlate clinically.
--- NOTE | 2020-03-06 09:14 | XRAY ---
Indication: Headache. Left upper extremity numbness. Multiple contiguous axial images obtained through the head without contrast. Comparison: None Normal appearing brain parenchyma, ventricles, and bony calvarium. Visualized paranasal sinuses and mastoid air cells are clear. Impression: Normal CT head without contrast exam. Comment: Preliminary interpretation was made by [facility]. No critical discrepancy.
== END 2020-03-06 02:00 | disposition short-term general hospital (02) ==
LOC: ED 22:21
DX: I48.20 Chronic atrial fibrillation, unspecified (principal); F15.19 Other stimulant abuse with unspecified stimulant-induced disorder; Z91.14 Patient's other noncompliance with medication regimen; R42 Dizziness and giddiness; I50.9 Heart failure, unspecified; E78.5 Hyperlipidemia, unspecified
CPT/HCPCS: 36000; 36415; 70450; 71045; 80053; 80307; 83735; 84484; 85025; 93005; 93041; 94760; 96360; 96361; 96365; 96366; 96372; 96374; 96375; 99285; J1650

== ENCOUNTER 2021-06-27 22:38 | Inpatient (IN) | payer OTHER ==
[2021-06-27] MEDS ORDERED: PROVENTIL 2.5 MG/3 ML NEB IH ONE ×2 (22:50→23:10)
--- NOTE | 2021-06-27 22:54 | ERPHSYRPT ---
- History of Present Illness Time Seen by Provider: 06/27/21 22:50 Source: patient, EMS Exam Limitations: no limitations Physician History: Patient is a 51-year-old obese white male who has a history of atrial fibrillation on diltiazem and Lopressor who is at times noncompliant with his medication and has a history of CHF and elevated cholesterol. His primary care physician is Dr. Alfonso. His orthopaedic surgeon is Dr. Raphael. He presents with a 5-day history of worsening shortness of breath. He arrives via EMS with symptoms of wheezing. He received DuoNeb treatment in route to the hospital by EMS. On arrival to the emergency department, patient's heart rate was in the 160s. EKG shows atrial fibrillation with RVR with a heart rate of 159. Patient does not have chest pain. He is wheezing and he is short of breath. He thinks he might have taken his medication this morning but he is not 100% certain. Patient is on Xarelto and he states he has taken that today. Timing/Duration: day(s) (5) Activities at Onset: none Severity of Dyspnea-Max: moderate Severity of Dyspnea-Current: moderate Possible Cause: occasional episodes Modifying Factors: Improves With: activity, albuterol nebulizer Associated Symptoms: wheezing Allergies/Adverse Reactions: No Known Drug Allergies Allergy (Verified 06/27/21 22:39) Home Medications: Albuterol Sulfate [Albuterol Sulfate Hfa] 2 puff PO Q4-6HPRN PRN 06/28/21 [History] Paroxetine HCl 20 mg [Paxil 20 MG] 1 tab PO DAILY 06/28/21 [History] Rivaroxaban [Xarelto] 1 tab PO DAILY 06/28/21 [History] Hx Tetanus, Diphtheria Vaccination/Date Given: Yes Hx Influenza Vaccination/Date Given: No Hx Pneumococcal Vaccination/Date Given: No Travel Risk - International Travel Have you traveled outside of the country in past 3 weeks: No - Coronavirus Screening Are you exhibiting any of the following symptoms?: Yes Symptoms: Shortness of Breath Close contact with a COVID-19 positive Pt in past 14-21 Days: No - Review of Systems Constitutional: No Symptoms Eyes: No Symptoms Ears, Nose, & Throat: No Symptoms Respiratory: Dyspnea, Wheezing Cardiac: Palpitations Abdominal/Gastrointestinal: No Symptoms Genitourinary Symptoms: No Symptoms Musculoskeletal: No Symptoms Skin: No Symptoms Neurological: No Symptoms Psychological: No Symptoms Endocrine: No Symptoms Hematologic/Lymphatic: No Symptoms Immunological/Allergic: No Symptoms All Other Systems: Reviewed and Negative - Past Medical History Pertinent Past Medical History: No Neurological History: No Pertinent History ENT History: No Pertinent History Cardiac History: Congestive Heart Failure, High Cholesterol Respiratory History: No Pertinent History Endocrine Medical History: No Pertinent History Musculoskeletal History: No Pertinent History GI Medical History: No Pertinent History History: No Pertinent History Psycho-Social History: Depression Male Reproductive Disorders: No Pertinent History - Past Surgical History Past Surgical History: Yes Neuro Surgical History: No Pertinent History Cardiac: No Pertinent History Respiratory: No Pertinent History Gastrointestinal: Appendectomy Genitourinary: No Pertinent History Musculoskeletal: No Pertinent History Male Surgical History: No Pertinent History Other Surgical History: stomach surgery as a child - Social History Smoking Status: Former smoker How long have you smoked: years Exposure to second hand smoke: No Drug Use: none Patient Lives Alone: No ([facility]) - Nursing Vital Signs Nursing Vital Signs: Initial Vital Signs Temperature 98.6 F 06/27/21 22:40 Pulse Rate 155 H 06/27/21 22:40 Respiratory Rate 16 06/27/21 22:40 Blood Pressure 156/116 06/27/21 22:40 O2 Sat by Pulse Oximetry 96 06/27/21 22:40 Pain Scale Pain Intensity 0 - Physical Exam General Appearance: mild distress, alert, anxiety, obese Eye Exam: PERRL/EOMI, eyes nml inspection Ears, Nose, Throat Exam: hearing grossly normal, normal ENT inspection, normal pharynx Neck Exam: normal inspection, non-tender, supple, full range of motion Respiratory Exam: respiratory distress, wheezing, No chest tenderness (Mild) Cardiovascular/Chest Exam: other (A. fib with RVR) Abdominal/Gastrointestinal Exam: soft, normal bowel sounds, No tenderness Rectal Exam: not done Extremity Exam: non-tender, normal range of motion, normal inspection Neurologic Exam: alert, oriented x 3, cooperative, staff respiratory therapist II-XII nml as tested, nor mal mood/affect, sensation nml Skin Exam: normal color, warm, dry Lymphatic Exam: No adenopathy SpO2 Interpretation: normal O2 Delivery: Room Air - Course Nursing assessment & vital signs reviewed: Yes EKG Interpreted by Me: RATE (159), A-fib, prolonged QT interval, Other (No acute ischemic changes.) Ordered Tests: Active Orders 24 hr Category Date Time Status Relief Mate STAT Care 06/27/21 22:52 Active EKG-ER Only STAT Care 06/27/21 22:51 Active EKG-ER Only STAT Care 06/28/21 01:49 Active IV Insertion STAT Care 06/27/21 22:51 Active Oxygen-ED Only Nasal Cannula 2 lpm Care 06/27/21 22:51 Active CHEST 1 VIEW (PORTABLE) Stat Exams 06/27/21 22:52 Taken CBC W DIFF Stat Lab 06/27/21 23:24 Completed CMP Stat Lab 06/27/21 23:24 Completed D-DIMER QUANTITATIVE Stat Lab 06/27/21 23:24 Completed NT PRO BNP Stat Lab 06/27/21 23:24 Completed TROPONIN Q3H Lab 06/27/21 23:24 Completed TROPONIN Q3H Lab 06/28/21 02:13 Completed TROPONIN Q3H Lab 06/28/21 05:00 Ordered TROPONIN Q3H Lab 06/28/21 08:00 Ordered TROPONIN Q3H Lab 06/28/21 11:00 Ordered Respiratory Therapy Assessment DAILY RT 06/27/21 23:11 Active Transfer Order Routine Transfer 06/28/21 Ordered Medication Summary Generic Name Dose Route Start Last Admin Trade Name Freq PRN Reason Stop Dose Admin Diltiazem HCl 100 mls @ 5 mls/hr 06/27/21 23:07 06/27/21 23:58 Cardizem Drip 100 Mg/100 Ml D5w IV 07/27/21 23:06 5 mg/hr .Q20H PRN 5 mls/hr HEART RATE/ A-FIB Administration Protocol 5 MG/HR Discontinued Medications Generic Name Dose Route Start Last Admin Trade Name Freq PRN Reason Stop Dose Admin Albuterol Sulfate Confirm 06/27/21 22:50 Albuterol Sulfate 2.5 Mg/3 Ml Neb Administered 06/27/21 22:51 Dose 2.5 mg IH .STK-MED ONE Albuterol Sulfate 2.5 mg 06/27/21 23:10 06/27/21 23:10 Albuterol Sulfate 2.5 Mg/3 Ml Neb IH 06/27/21 23:11 2.5 mg STAT ONE Administration Methylprednisolone Sodium 0 mg 06/27/21 23:08 06/27/21 23:39 Succinate 125 mg/ Sterile IV 06/27/21 23:09 Not Given Water 2 ml STAT ONE Diltiazem HCl Confirm 06/27/21 22:58 Diltiazem Hcl Iv 5 Mg/Ml Vial Administered 06/27/21 22:59 Dose 50 mg IV .STK-MED ONE Diltiazem HCl 25 mg 06/27/21 23:00 06/27/21 23:01 Diltiazem Hcl Iv 5 Mg/Ml Vial IV 06/27/21 23:01 25 mg STAT ONE Administration Metoprolol Tartrate 5 mg 06/27/21 23:07 06/27/21 23:10 Metoprolol Tartrate 5 Mg/5 Ml Injection IV 06/27/21 23:08 5 mg STAT ONE Administration Metoprolol Tartrate Confirm 06/27/21 23:10 Metoprolol Tartrate 5 Mg/5 Ml Injection Administered 06/27/21 23:11 Dose 5 mg IV .STK-MED ONE Lab/Rad Data: Laboratory Result Diagrams 06/27/21 23:24 06/27/21 23:24 Laboratory Results 06/28/21 06/28/21 06/27/21 Range/Units 02:13 00:30 23:24 WBC (4.0-10.5) K/mm3 RBC (4.1-5.6) M/mm3 Hgb (12.5-18.0) gm/dl Hct (42-50) % MCV (78-100) fl MCH (26-32) pg MCHC (32-36) g/dl RDW (11.5-14.0) % Plt Count (150-450) K/mm3 MPV (7.5-11.0) fl Gran % (36.0-66.0) % Eos # (Auto) (0-0.5) Absolute Lymphs (auto) (1.0-4.6) Absolute Monos (auto) (0.0-1.3) Lymphocytes % (24.0-44.0) % Monocytes % (0.0-12.0) % Eosinophils % (0.00-5.0) % Basophils % (0.0-0.4) % Absolute Granulocytes (1.4-6.9) Basophils # (0-0.4) D-Dimer Sodium (137-145) mmol/L Potassium (3.5-5.1) mmol/L Chloride (98-107) mmol/L Carbon Dioxide (22-30) mmol/L Anion Gap (5-15) MEQ/L BUN (9-20) mg/dL Creatinine (0.66-1.25) mg/dL Estimated GFR ML/MIN Glucose (74-106) mg/dL Calcium (8.4-10.2) mg/dL Total Bilirubin (0.2-1.3) mg/dL AST (17-59) U/L ALT (0-50) U/L Alkaline Phosphatase (38-126) U/L Troponin I 0.016 0.015 (0.000-0.034) ng/mL NT-Pro-B Natriuret Pep (0-900) pg/mL Serum Total Protein (6.3-8.2) g/dL Albumin (3.5-5.0) g/dL Influenza Type A Ag NEGATIVE (NEGATIVE) Influenza Type B Ag NEGATIVE (NEGATIVE) RSV (PCR) NEGATIVE (Negative) SARS-CoV-2 (PCR) NEGATIVE (NEGATIVE) 06/27/21 06/27/21 06/27/21 Range/Units 23:24 23:24 23:24 WBC 10.3 (4.0-10.5) K/mm3 RBC 5.55 (4.1-5.6) M/mm3 Hgb 16.7 (12.5-18.0) gm/dl Hct 50.4 H (42-50) % MCV 90.8 (78-100) fl MCH 30.1 (26-32) pg MCHC 33.1 (32-36) g/dl RDW 13.9 (11.5-14.0) % Plt Count 187 (150-450) K/mm3 MPV 10.3 (7.5-11.0) fl Gran % 55.5 (36.0-66.0) % Eos # (Auto) 1.11 H (0-0.5) Absolute Lymphs (auto) 2.43 (1.0-4.6) Absolute Monos (auto) 0.97 (0.0-1.3) Lymphocytes % 23.7 L (24.0-44.0) % Monocytes % 9.4 (0.0-12.0) % Eosinophils % 10.8 H (0.00-5.0) % Basophils % 0.6 (0.0-0.4) % Absolute Granulocytes 5.70 (1.4-6.9) Basophils # 0.06 (0-0.4) D-Dimer ZINC SKIMMER Sodium 140 (137-145) mmol/L Potassium 3.9 (3.5-5.1) mmol/L Chloride 102 (98-107) mmol/L Carbon Dioxide 27 (22-30) mmol/L Anion Gap 14.9 (5-15) MEQ/L BUN 11 (9-20) mg/dL Creatinine 0.89 (0.66-1.25) mg/dL Estimated GFR > 60.0 ML/MIN Glucose 110 H (74-106) mg/dL Calcium 9.9 (8.4-10.2) mg/dL Total Bilirubin 0.60 (0.2-1.3) mg/dL AST 133 H (17-59) U/L ALT 256 H (0-50) U/L Alkaline Phosphatase 85 (38-126) U/L Troponin I (0.000-0.034) ng/mL NT-Pro-B Natriuret Pep 453 (0-900) pg/mL Serum Total Protein 8.4 H (6.3-8.2) g/dL Albumin 4.6 (3.5-5.0) g/dL Influenza Type A Ag (NEGATIVE) Influenza Type B Ag (NEGATIVE) RSV (PCR) (Negative) SARS-CoV-2 (PCR) (NEGATIVE) - Progress Progress: improved Air Movement: fair Progress Note: 06/28/21 01:16 Chest x-ray shows no acute cardiopulmonary process. 06/28/21 03:05 Medical decision making: This patient had shortness of breath most likely secondary to his atrial fibrillation with RVR. Chest x-ray does not show any acute pulmonarycardiac process. His D-dimer is normal and he has had 2 normal troponin levels. Patient is now normal sinus rhythm on the residential monitor. I spoke with Dr. Robert Zhu. We will place him in the telemetry unit and continue the Cardizem drip. We will repeat labs in the morning as well as repeat EKG and serial troponins. Discussed with : Yessica Counseled pt/family regarding: lab results, diagnosis, need for follow-up, rad results - Departure Departure Disposition: In-patient Admission Clinical Impression: Atrial fibrillation with RVR, Shortness of breath Condition: Stable Critical Care Time: Yes Critical Care Time(excluding separately billable procedures): Critical 30-74 mins (40 minutes) Referrals: FARNAZ ALFONSO [Primary Care Provider] - Follow up/PCP as directed
[2021-06-27] MEDS ORDERED: Cardizem IV 50 MG/10 ML IV ONE ×2 (22:58→23:00)
[2021-06-27] MEDS ORDERED: CARDIZEM DRIP 100 MG/100 ML D5W 100 ML IV PRN (23:07)
[2021-06-27] MEDS ORDERED: LOPRESSOR 5 MG/5 ML INJECTION IV ONE ×2 (23:07→23:10)
[2021-06-27] MEDS ORDERED: solu-MEDROL 125 MG, Sterile H2O 10 ml 2 ML IV ONE ×2 (23:08)
[2021-06-27 23:27] LABS: Basophil (Absolute #) 0.06 (0-0.4); Eosinophil % 10.8 % (0.00-5.0); Eosinophil (Absolute #) 1.11 (0-0.5); Hematocrit 50.4 % (42-50); Hemoglobin 16.7 gm/dl (12.5-18.0); Lymphocyte (Absolute #) 2.43 (1.0-4.6); Lymphocytes % 23.7 % (24.0-44.0); Mean Cell Volume 90.8 fl (78-100); Mean Corpuscular Hemoglobin 30.1 pg (26-32); Mean Corpuscular Hgb Concent. 33.1 g/dl (32-36); Mean Platelet Volume 10.3 fl (7.5-11.0); Monocyte (Absolute #) 0.97 (0.0-1.3); Monocytes % 9.4 % (0.0-12.0); Neutrophil % 55.5 % (36.0-66.0); Platelet Count 187 K/mm3 (150-450); Red Blood Count 5.55 M/mm3 (4.1-5.6); Red Cell Distribution Width 13.9 % (11.5-14.0); White Blood Count 10.3 K/mm3 (4.0-10.5)
[2021-06-27] MEDS ORDERED: CARDIZEM DRIP 100 MG/100 ML D5W 100 ML IV ONE (23:57)
[2021-06-28 00:16] LABS: ALBUMIN 4.6 g/dL (3.5-5.0); ALKALINE PHOSPHATASE 85 U/L (38-126); ANION GAP 14.9 MEQ/L (5-15); BLOOD UREA NITROGEN 11 mg/dL (9-20); CHLORIDE 102 mmol/L (98-107); Calcium 9.9 mg/dL (8.4-10.2); Carbon Dioxide 27 mmol/L (22-30); Creatinine 1 0.89 mg/dL (0.66-1.25); EST GLOMERULAR FILTRATION RATE > 60.0 ML/MIN; Glucose 110 mg/dL (74-106); Potassium 3.9 mmol/L (3.5-5.1); SGOT/AST 133 U/L (17-59); SGPT/ALT 256 U/L (0-50); SODIUM 140 mmol/L (137-145); Total Protein 8.4 g/dL (6.3-8.2)
[2021-06-28 00:17] LABS: NT PRO BNP 453 pg/mL (0-900)
[2021-06-28 01:14] LABS: INFLUENZA A NEGATIVE (NEGATIVE); INFLUENZA B NEGATIVE (NEGATIVE); RESPIRATORY SYNCTIAL VIRUS NEGATIVE (Negative); SARS-CoV-2 Xpert Express NEGATIVE (NEGATIVE)
[2021-06-28] MEDS ORDERED: Zofran 4 MG/2 ML VIAL IV PRN (04:52)
[2021-06-28] MEDS ORDERED: TYLENOL 325 MG PO PRN (04:52)
[2021-06-28] MEDS ORDERED: CARDIZEM DRIP 100 MG/100 ML D5W 100 ML IV PRN (04:52)
--- NOTE | 2021-06-28 07:22 | XRAY ---
Indication: Short of breath. Comparison: March 05, 2020. Portable chest hyperinflated and clear. Heart not enlarged. Bony thorax intact again with dextroscoliosis. No new/acute findings.
[2021-06-28] MEDS ORDERED: Ventolin Hfa MDI IH PRN (13:10)
[2021-06-28] MEDS ORDERED: VENTOLIN COMMON CANISTER IH PRN (13:13)
[2021-06-28] MEDS: Lopressor 50 MG PO SCH ×2 (13:24→21:58)
[2021-06-28] MEDS: xanAX 0.5 MG PO PRN (13:24)
[2021-06-28] MEDS: XARELTO 10 MG TABLET PO SCH (13:24)
[2021-06-28] MEDS ORDERED: solu-MEDROL ONE (14:37)
[2021-06-28] MEDS: solu-MEDROL 40 MG, Sterile H2O 10 ml 1 ML IV SCH ×4 (14:47→21:56)
[2021-06-28] MEDS: Paxil 20 MG PO SCH (14:47)
[2021-06-28] MEDS: DUONEB 0.5-3 MG/3 ml Neb IH PRN ×3 (15:04→23:42)
[2021-06-28] MEDS: LASIX 20 MG PO SCH (16:01)
--- NOTE | 2021-06-28 16:21 | PCM.HP ---
History of Present Illness - Chief Complaint Chief Complaint: Afib History of Present Illness: is a 51 year old male pt of Dr. Alfonso with hx afib, CHF, hyperlipidemia, hx TOB abuse who was admitted through ER with afib with RVR. He had complained of 2.5 weeks of wheezine. He saw Dr. Alfonso and took antibiotics and felt better. His girlfriend then got covid and 5-6 days ago he got sick as well. He tested negative for covid both at home and on admission. Denies fever. Main symptoms were cough and shortness of breath. He is reportedly noncompliant with many of his meds. He does take his lasix and paxil. He said he had been on cardizem TID in the past, but his HR decreased to 37 bpm so he was taken off of that. When prescribed cardizem currently, he decided on his own to take it once daily instead of three times daily. - Review of Systems Respiratory: Cough, Short Of Breath, Wheezing Abdominal/Gastrointestinal: Diarrhea (x1 - thinks diet-related) Psychological: Depression (many family members have since . Does not think paxil 20mg is working anymore, although it worked initially.), No Suicidal Ideations, No Homicidal Ideations Medications & Allergies Home Medications: Home Medication List ALPRAZolam [Alprazolam] 0.5 mg PO TID PRN PRN 06/28/21 [History Confirmed 06/28/21] Albuterol Sulfate [Albuterol Sulfate Hfa] 2 puff PO Q4-6HPRN PRN 06/28/21 [History Confirmed 06/28/21] Furosemide 20 mg [Lasix 20 mg] 20 mg PO BID 06/28/21 [History Confirmed 06/28/21] Metoprolol Tartrate 50 mg PO BID 06/28/21 [History Confirmed 06/28/21] Paroxetine HCl 20 mg [Paxil 20 MG] 1 tab PO DAILY 06/28/21 [History Confirmed 06/28/21] Rivaroxaban [Xarelto] 1 tab PO DAILY 06/28/21 [History Confirmed 06/28/21] dilTIAZem HCL [Diltiazem HCl] 30 mg PO TID 06/28/21 [History Confirmed 06/28/21] Allergies/Adverse Reactions: Allergies Allergy/AdvReac Type Severity Reaction Status Date / Time No Known Drug Allergies Allergy Verified 06/28/21 05:05 - Past Medical History Past Medical History: Yes Neurological History: Stroke ENT History: Other Cardiac History: Arrhythmia, Congestive Heart Failure, High Cholesterol, Hypertension Respiratory History: No Pertinent History Endocrine Medical History: No Pertinent History Musculoskelatal History: No Pertinent History GI Medical History: No Pertinent History History: No Pertinent History Pyscho-Social History: Depression Male Reproductive Disorders: No Pertinent History Comment: 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 - Past Surgical History Past Surgical History: Yes Neuro Surgical History: No Pertinent History Cardiac History: No Pertinent History Respiratory Surgery: No Pertinent History GI Surgical History: Appendectomy Genitourinary Surgical Hx: No Pertinent History Musculskeletal Surgical Hx: No Pertinent History Male Surgical History: No Pertinent History Other Surgical History: stomach surgery as a child - Social History Smoking Status: Current every day smoker How long have you smoked: years Exposure to second hand smoke: No Alcohol: Daily Drug Use: none - Physical Exam Vital Signs: Vital Signs - 24 hr Temp Pulse Resp BP BP Pulse Ox 06/28/21 16:06 93 H 162/87 06/28/21 16:00 97 F 93 H 18 162/87 98 06/28/21 15:07 105 H 18 97 06/28/21 15:00 73 16 142/82 142/82 97 06/28/21 14:00 108 H 16 112/76 112/76 97 06/28/21 13:17 116 H 06/28/21 13:00 98.1 F 115 H 16 97 06/28/21 12:00 98.1 F 131 H 16 140/80 97 06/28/21 11:57 142 H 141/80 06/28/21 11:42 111 H 06/28/21 10:52 111 H 18 120/103 99 06/28/21 09:57 111 H 06/28/21 09:56 107 H 18 99 06/28/21 09:04 97 H 132/88 06/28/21 09:00 100 H 18 99 06/28/21 08:12 95 06/28/21 08:10 107 H 141/90 06/28/21 07:27 111 H 06/28/21 07:15 124 H 06/28/21 07:10 98.0 F 106 H 12 138/88 95 06/28/21 07:00 97.7 F 113 H 25 H 126/103 06/28/21 06:57 113 H 25 H 138/88 06/28/21 05:59 116 H 14 126/103 95 06/28/21 05:58 118 H 18 138/94 06/28/21 05:08 97.7 F 127 H 24 138/75 97 06/28/21 04:58 129 H 24 135/78 06/28/21 04:52 97 06/28/21 04:00 105 H 18 118/84 96 06/28/21 03:58 105 H 18 118/84 06/28/21 03:00 110 H 13 130/92 97 06/28/21 02:58 110 H 13 130/92 06/28/21 02:00 116 H 13 133/94 97 06/28/21 01:58 116 H 13 133/94 06/28/21 01:11 113 H 15 121/84 95 06/28/21 00:58 115 H 15 159/98 06/28/21 00:53 115 H 15 159/98 94 L 06/27/21 23:59 110 H 26 H 133/81 93 L 06/27/21 23:58 120 H 26 H 133/81 06/27/21 23:11 159 H 29 H 96 06/27/21 22:40 98.6 F 155 H 16 156/116 96 General Appearance: no apparent distress, alert Neurologic Exam: oriented x 3, cooperative Eye Exam: eyes nml inspection Ears, Nose, Throat Exam: moist mucous membranes Neck Exam: normal inspection Respiratory Exam: diminished breath sounds (good air exchange), wheezing (bilat bases, L>R), No crackles/rales, No rhonchi Cardiovascular Exam: regular rate/rhythm, normal heart sounds, No murmur Gastrointestinal/Abdomen Exam: soft, normal bowel sounds, No tenderness, No distention, No mass, No guarding, No rebound Back Exam: normal inspection, No rash Extremity Exam: normal inspection, swelling (trace pretibial edema) Skin Exam: normal color, warm, dry, No rash Results - Labs Lab/Micro Results: Lab Results-Last 24 Hours 06/27/21 06/27/21 06/27/21 Range/Units 23:24 23:24 23:24 WBC 10.3 (4.0-10.5) K/mm3 RBC 5.55 (4.1-5.6) M/mm3 Hgb 16.7 (12.5-18.0) gm/dl Hct 50.4 H (42-50) % MCV 90.8 (78-100) fl MCH 30.1 (26-32) pg MCHC 33.1 (32-36) g/dl RDW 13.9 (11.5-14.0) % Plt Count 187 (150-450) K/mm3 MPV 10.3 (7.5-11.0) fl Gran % 55.5 (36.0-66.0) % Eos # (Auto) 1.11 H (0-0.5) Absolute Lymphs (auto) 2.43 (1.0-4.6) Absolute Monos (auto) 0.97 (0.0-1.3) Lymphocytes % 23.7 L (24.0-44.0) % Monocytes % 9.4 (0.0-12.0) % Eosinophils % 10.8 H (0.00-5.0) % Basophils % 0.6 (0.0-0.4) % Absolute Granulocytes 5.70 (1.4-6.9) Basophils # 0.06 (0-0.4) D-Dimer METAL BALER Sodium 140 (137-145) mmol/L Potassium 3.9 (3.5-5.1) mmol/L Chloride 102 (98-107) mmol/L Carbon Dioxide 27 (22-30) mmol/L Anion Gap 14.9 (5-15) MEQ/L BUN 11 (9-20) mg/dL Creatinine 0.89 (0.66-1.25) mg/dL Estimated GFR > 60.0 ML/MIN Glucose 110 H (74-106) mg/dL POC Glucometer (74 to 106) mg/dL Calcium 9.9 (8.4-10.2) mg/dL Total Bilirubin 0.60 (0.2-1.3) mg/dL AST 133 H (17-59) U/L ALT 256 H (0-50) U/L Alkaline Phosphatase 85 (38-126) U/L Troponin I (0.000-0.034) ng/mL NT-Pro-B Natriuret Pep 453 (0-900) pg/mL Serum Total Protein 8.4 H (6.3-8.2) g/dL Albumin 4.6 (3.5-5.0) g/dL Influenza Type A Ag (NEGATIVE) Influenza Type B Ag (NEGATIVE) RSV (PCR) (Negative) SARS-CoV-2 (PCR) (NEGATIVE) 06/27/21 06/28/21 06/28/21 Range/Units 23:24 00:30 02:13 WBC (4.0-10.5) K/mm3 RBC (4.1-5.6) M/mm3 Hgb (12.5-18.0) gm/dl Hct (42-50) % MCV (78-100) fl MCH (26-32) pg MCHC (32-36) g/dl RDW (11.5-14.0) % Plt Count (150-450) K/mm3 MPV (7.5-11.0) fl Gran % (36.0-66.0) % Eos # (Auto) (0-0.5) Absolute Lymphs (auto) (1.0-4.6) Absolute Monos (auto) (0.0-1.3) Lymphocytes % (24.0-44.0) % Monocytes % (0.0-12.0) % Eosinophils % (0.00-5.0) % Basophils % (0.0-0.4) % Absolute Granulocytes (1.4-6.9) Basophils # (0-0.4) D-Dimer Sodium (137-145) mmol/L Potassium (3.5-5.1) mmol/L Chloride (98-107) mmol/L Carbon Dioxide (22-30) mmol/L Anion Gap (5-15) MEQ/L BUN (9-20) mg/dL Creatinine (0.66-1.25) mg/dL Estimated GFR ML/MIN Glucose (74-106) mg/dL POC Glucometer (74 to 106) mg/dL Calcium (8.4-10.2) mg/dL Total Bilirubin (0.2-1.3) mg/dL AST (17-59) U/L ALT (0-50) U/L Alkaline Phosphatase (38-126) U/L Troponin I 0.015 0.016 (0.000-0.034) ng/mL NT-Pro-B Natriuret Pep (0-900) pg/mL Serum Total Protein (6.3-8.2) g/dL Albumin (3.5-5.0) g/dL Influenza Type A Ag NEGATIVE (NEGATIVE) Influenza Type B Ag NEGATIVE (NEGATIVE) RSV (PCR) NEGATIVE (Negative) SARS-CoV-2 (PCR) NEGATIVE (NEGATIVE) 06/28/21 06/28/21 06/28/21 Range/Units 04:47 05:15 05:27 WBC (4.0-10.5) K/mm3 RBC (4.1-5.6) M/mm3 Hgb (12.5-18.0) gm/dl Hct (42-50) % MCV (78-100) fl MCH (26-32) pg MCHC (32-36) g/dl RDW (11.5-14.0) % Plt Count (150-450) K/mm3 MPV (7.5-11.0) fl Gran % (36.0-66.0) % Eos # (Auto) (0-0.5) Absolute Lymphs (auto) (1.0-4.6) Absolute Monos (auto) (0.0-1.3) Lymphocytes % (24.0-44.0) % Monocytes % (0.0-12.0) % Eosinophils % (0.00-5.0) % Basophils % (0.0-0.4) % Absolute Granulocytes (1.4-6.9) Basophils # (0-0.4) D-Dimer Sodium (137-145) mmol/L Potassium (3.5-5.1) mmol/L Chloride (98-107) mmol/L Carbon Dioxide (22-30) mmol/L Anion Gap (5-15) MEQ/L BUN (9-20) mg/dL Creatinine (0.66-1.25) mg/dL Estimated GFR ML/MIN Glucose (74-106) mg/dL POC Glucometer 171 H (74 to 106) mg/dL Calcium (8.4-10.2) mg/dL Total Bilirubin (0.2-1.3) mg/dL AST (17-59) U/L ALT (0-50) U/L Alkaline Phosphatase (38-126) U/L Troponin I < 0.012 < 0.012 (0.000-0.034) ng/mL NT-Pro-B Natriuret Pep (0-900) pg/mL Serum Total Protein (6.3-8.2) g/dL Albumin (3.5-5.0) g/dL Influenza Type A Ag (NEGATIVE) Influenza Type B Ag (NEGATIVE) RSV (PCR) (Negative) SARS-CoV-2 (PCR) (NEGATIVE) 06/28/21 Range/Units 11:10 WBC (4.0-10.5) K/mm3 RBC (4.1-5.6) M/mm3 Hgb (12.5-18.0) gm/dl Hct (42-50) % MCV (78-100) fl MCH (26-32) pg MCHC (32-36) g/dl RDW (11.5-14.0) % Plt Count (150-450) K/mm3 MPV (7.5-11.0) fl Gran % (36.0-66.0) % Eos # (Auto) (0-0.5) Absolute Lymphs (auto) (1.0-4.6) Absolute Monos (auto) (0.0-1.3) Lymphocytes % (24.0-44.0) % Monocytes % (0.0-12.0) % Eosinophils % (0.00-5.0) % Basophils % (0.0-0.4) % Absolute Granulocytes (1.4-6.9) Basophils # (0-0.4) D-Dimer Sodium (137-145) mmol/L Potassium (3.5-5.1) mmol/L Chloride (98-107) mmol/L Carbon Dioxide (22-30) mmol/L Anion Gap (5-15) MEQ/L BUN (9-20) mg/dL Creatinine (0.66-1.25) mg/dL Estimated GFR ML/MIN Glucose (74-106) mg/dL POC Glucometer (74 to 106) mg/dL Calcium (8.4-10.2) mg/dL Total Bilirubin (0.2-1.3) mg/dL AST (17-59) U/L ALT (0-50) U/L Alkaline Phosphatase (38-126) U/L Troponin I 0.017 (0.000-0.034) ng/mL NT-Pro-B Natriuret Pep (0-900) pg/mL Serum Total Protein (6.3-8.2) g/dL Albumin (3.5-5.0) g/dL Influenza Type A Ag (NEGATIVE) Influenza Type B Ag (NEGATIVE) RSV (PCR) (Negative) SARS-CoV-2 (PCR) (NEGATIVE) - Radiology Impressions Radiology Exams & Impressions: Radiology Procedures Category Date Time Status CHEST 1 VIEW (PORTABLE) Stat Exams 06/27/21 22:52 Completed - Other Procedures and Tests Respiratory Therapy 06/27/21 23:11 Respiratory Therapy Assessment DAILY 06/28/21 08:10 Oxygen Nasal Cannula 2 lpm Assessment/Plan (1) Atrial fibrillation with RVR Current Visit: Yes Status: Acute Assessment & Plan: ON IV cardizem currently - will wean off as tolerated and start po med. Would try long acting as he is noncompliant with TID dosing. On xarelto. Code(s): I48.91 - UNSPECIFIED ATRIAL FIBRILLATION (2) Wheezing Current Visit: Yes Status: Acute Assessment & Plan: restart pt on Advair at discharge. getting steroids currently. Code(s): R06.2 - WHEEZING (3) Elevated liver function tests Current Visit: No Status: Acute Assessment & Plan: recheck in a.m. Code(s): R94.5 - ABNORMAL RESULTS OF LIVER FUNCTION STUDIES (4) Non compliance with medical treatment Current Visit: No Status: Chronic Code(s): Z91.19 - PATIENT'S NONCOMPLIANCE W OTH MEDICAL TREATMENT AND REGIMEN
[2021-06-28] MEDS ORDERED: Cardizem CD 120 MG ONE (16:29)
[2021-06-29] MEDS: xanAX 0.5 MG PO PRN ×2 (01:19→15:13)
[2021-06-29] MEDS: solu-MEDROL 40 MG, Sterile H2O 10 ml 1 ML IV SCH ×2 (06:00)
[2021-06-29 06:21] LABS: Absolute Neutrophil Ct (ANC) 17.32 (1.4-6.9); Basophil (Absolute #) 0.01 (0-0.4); Eosinophil (Absolute #) 0 (0-0.5); Hematocrit 45.7 % (42-50); Hemoglobin 14.7 gm/dl (12.5-18.0); Lymphocytes % 7.1 % (24.0-44.0); Mean Cell Volume 94.8 fl (78-100); Mean Corpuscular Hemoglobin 30.5 pg (26-32); Mean Corpuscular Hgb Concent. 32.2 g/dl (32-36); Mean Platelet Volume 10.6 fl (7.5-11.0); Monocyte (Absolute #) 1.02 (0.0-1.3); Monocytes % 5.2 % (0.0-12.0); Neutrophil % 87.6 % (36.0-66.0); Platelet Count 196 K/mm3 (150-450); Red Blood Count 4.82 M/mm3 (4.1-5.6); Red Cell Distribution Width 14.3 % (11.5-14.0); White Blood Count 19.8 K/mm3 (4.0-10.5)
[2021-06-29 06:27] LABS: ALBUMIN 4.1 g/dL (3.5-5.0); ALKALINE PHOSPHATASE 61 U/L (38-126); ANION GAP 11.3 MEQ/L (5-15); BLOOD UREA NITROGEN 13 mg/dL (9-20); CHLORIDE 103 mmol/L (98-107); Calcium 9.4 mg/dL (8.4-10.2); Carbon Dioxide 27 mmol/L (22-30); Creatinine 1 0.65 mg/dL (0.66-1.25); EST GLOMERULAR FILTRATION RATE > 60.0 ML/MIN; Glucose 145 mg/dL (74-106); Potassium 4.6 mmol/L (3.5-5.1); SGOT/AST 65 U/L (17-59); SGPT/ALT 166 U/L (0-50); SODIUM 137 mmol/L (137-145); Total Protein 7.6 g/dL (6.3-8.2)
--- NOTE | 2021-06-29 09:54 | PCM.NOTE ---
Date and Time: 06/29/2151 Subjective Assessment: He is feeling better. hardy po well. breathing is better. - Review of Systems Constitutional: No Fever Respiratory: Short Of Breath Objective Exam General Appearance: no apparent distress, alert Neurologic Exam: oriented x 3, cooperative Skin Exam: normal color, warm, dry, No rash Eye Exam: pale conjunctivae Ears, Nose, Throat Exam: moist mucous membranes Neck Exam: normal inspection Respiratory Exam: normal breath sounds, diminished breath sounds (good air exchange), No crackles/rales, No rhonchi, No wheezing Cardiovascular Exam: regular rate/rhythm, normal heart sounds, No murmur Gastrointestinal/Abdomen Exam: soft, normal bowel sounds, tenderness (mild diffuse), No distention, No mass, No guarding, No rebound Extremity Exam: normal inspection, No pedal edema, No swelling OBJECTIVE DATA Vital Signs: Vital Signs - 24 hr Temp Pulse Resp BP BP Pulse Ox 06/29/21 08:00 97.3 F 89 14 125/72 95 06/29/21 07:48 96 06/29/21 04:00 97.5 F 91 H 15 134/83 95 06/28/21 23:49 82 06/28/21 23:48 98.7 F 84 16 123/83 93 L 06/28/21 23:42 91 H 15 95 06/28/21 21:58 92 H 129/86 06/28/21 19:41 97.2 F 86 18 126/57 95 06/28/21 19:05 99 H 20 95 06/28/21 18:00 85 118/71 06/28/21 17:59 87 18 118/71 98 06/28/21 17:39 91 H 126/65 06/28/21 17:00 100 H 134/83 06/28/21 16:54 108 H 18 134/83 98 06/28/21 16:52 81 134/89 06/28/21 16:49 76 06/28/21 16:06 93 H 162/87 06/28/21 16:00 97 F 101 H 18 162/86 162/87 98 06/28/21 15:07 105 H 18 97 06/28/21 15:00 73 16 142/82 142/82 97 06/28/21 14:00 108 H 16 112/76 112/76 97 06/28/21 13:17 116 H 06/28/21 13:00 98.1 F 115 H 16 97 06/28/21 12:00 98.1 F 131 H 16 140/80 97 06/28/21 11:57 142 H 141/80 06/28/21 11:42 111 H 06/28/21 10:52 111 H 18 120/103 99 06/28/21 09:57 111 H 06/28/21 09:56 107 H 18 99 Pain Assessment - Last Documented Pain Intensity 0 Intake and Output: Intake & Output 06/26/21 06/27/21 06/28/21 06/29/21 11:59 11:59 11:59 11:59 Intake Total 120 605 Output Total 950 Balance 120 -345 Weight 136.2 kg 138 kg Lab Results: Lab Results-Last 24 Hours 06/28/21 06/29/21 06/29/21 Range/Units 11:10 06:01 06:01 WBC 19.8 H (4.0-10.5) K/mm3 RBC 4.82 (4.1-5.6) M/mm3 Hgb 14.7 (12.5-18.0) gm/dl Hct 45.7 (42-50) % MCV 94.8 (78-100) fl MCH 30.5 (26-32) pg MCHC 32.2 (32-36) g/dl RDW 14.3 H (11.5-14.0) % Plt Count 196 (150-450) K/mm3 MPV 10.6 (7.5-11.0) fl Gran % 87.6 H (36.0-66.0) % Eos # (Auto) 0 (0-0.5) Absolute Lymphs (auto) 1.40 (1.0-4.6) Absolute Monos (auto) 1.02 (0.0-1.3) Lymphocytes % 7.1 L (24.0-44.0) % Monocytes % 5.2 (0.0-12.0) % Eosinophils % 0.0 (0.00-5.0) % Basophils % 0.1 (0.0-0.4) % Absolute Granulocytes 17.32 H (1.4-6.9) Basophils # 0.01 (0-0.4) Sodium 137 (137-145) mmol/L Potassium 4.6 (3.5-5.1) mmol/L Chloride 103 (98-107) mmol/L Carbon Dioxide 27 (22-30) mmol/L Anion Gap 11.3 (5-15) MEQ/L BUN 13 (9-20) mg/dL Creatinine 0.65 L (0.66-1.25) mg/dL Estimated GFR > 60.0 ML/MIN Glucose 145 H (74-106) mg/dL Calcium 9.4 (8.4-10.2) mg/dL Total Bilirubin 0.60 (0.2-1.3) mg/dL AST 65 H (17-59) U/L ALT 166 H (0-50) U/L Alkaline Phosphatase 61 (38-126) U/L Troponin I 0.017 (0.000-0.034) ng/mL Serum Total Protein 7.6 (6.3-8.2) g/dL Albumin 4.1 (3.5-5.0) g/dL Radiology Exams: Radiology Procedures Category Date Time Status CHEST 1 VIEW (PORTABLE) Stat Exams 06/27/21 22:52 Completed Assessment/Plan (1) Atrial fibrillation with RVR Current Visit: Yes Status: Acute Assessment & Plan: much improved, with hr still upper 90s/lower 100s on cardizem 120po daily. Increase to 180mg po daily and plan to send pt home tomorrow. Code(s): I48.91 - UNSPECIFIED ATRIAL FIBRILLATION (2) Wheezing Current Visit: Yes Status: Acute Assessment & Plan: improved; change pt to po steroid today Code(s): R06.2 - WHEEZING (3) Elevated liver function tests Current Visit: No Status: Acute Assessment & Plan: recheck in a.m. Better today. Code(s): R94.5 - ABNORMAL RESULTS OF LIVER FUNCTION STUDIES (4) Non compliance with medical treatment Current Visit: No Status: Chronic Code(s): Z91.19 - PATIENT'S NONCOMPLIANCE W OTH MEDICAL TREATMENT AND REGIMEN (5) Leukocytosis Current Visit: Yes Status: Acute Qualifiers: Leukocytosis type: unspecified Qualified Code(s): D72.829 - Elevated white blood cell count, unspecified Assessment & Plan: No left shift; likely due to steroids IV. recheck in a.m. Code(s): D72.829 - ELEVATED WHITE BLOOD CELL COUNT, UNSPECIFIED
[2021-06-29] MEDS ORDERED: NON-FORMULARY ITEM (Rivaroxaban [Xarelto] 20 MG Tablet) PO SCH (10:00)
[2021-06-29] MEDS ORDERED: Cardizem CD 120 MG PO SCH (10:00)
[2021-06-29] MEDS: LASIX 20 MG PO SCH ×2 (10:09→16:24)
[2021-06-29] MEDS: Lopressor 50 MG PO SCH ×2 (10:09→21:30)
[2021-06-29] MEDS: Paxil 20 MG PO SCH (10:09)
[2021-06-29] MEDS: DELTASONE 20 MG PO SCH (10:09)
[2021-06-29] MEDS: Cardizem CD 180 MG PO SCH (10:09)
[2021-06-29] MEDS: XARELTO 10 MG TABLET PO SCH (10:09)
[2021-06-29] MEDS: DUONEB 0.5-3 MG/3 ml Neb IH PRN ×2 (11:16→20:18)
[2021-06-29] MEDS ORDERED: MAALOX ES 30 ML UNIT DOSE PO PRN (15:03)
[2021-06-30] MEDS: DUONEB 0.5-3 MG/3 ml Neb IH PRN (01:16)
[2021-06-30] MEDS: xanAX 0.5 MG PO PRN (01:26)
[2021-06-30 05:27] LABS: Hematocrit 45.6 % (42-50); Hemoglobin 14.5 gm/dl (12.5-18.0); Mean Cell Volume 95.2 fl (78-100); Mean Corpuscular Hemoglobin 30.3 pg (26-32); Mean Corpuscular Hgb Concent. 31.8 g/dl (32-36); Platelet Count 205 K/mm3 (150-450); Red Blood Count 4.79 M/mm3 (4.1-5.6); Red Cell Distribution Width 14.2 % (11.5-14.0); White Blood Count 17.9 K/mm3 (4.0-10.5)
[2021-06-30 06:04] LABS: ALBUMIN 3.9 g/dL (3.5-5.0); ALKALINE PHOSPHATASE 59 U/L (38-126); ANION GAP 11.3 MEQ/L (5-15); BLOOD UREA NITROGEN 16 mg/dL (9-20); CHLORIDE 101 mmol/L (98-107); Calcium 9.1 mg/dL (8.4-10.2); Carbon Dioxide 29 mmol/L (22-30); Creatinine 1 0.64 mg/dL (0.66-1.25); EST GLOMERULAR FILTRATION RATE > 60.0 ML/MIN; Glucose 190 mg/dL (74-106); Potassium 4.4 mmol/L (3.5-5.1); SGOT/AST 43 U/L (17-59); SGPT/ALT 133 U/L (0-50); SODIUM 136 mmol/L (137-145); Total Protein 7.2 g/dL (6.3-8.2)
[2021-06-30 07:09] LABS: BAND 1 % (0.0-2.0); Lymphocytes 9 % (24-44); Monocyte 5 % (0.0-12.0); Total Cells Counted 100
[2021-06-30 07:10] LABS: Platelet Estimate NORMAL (NORMAL)
[2021-06-30 07:45] VITALS: BP 121/77; PULSE 69; O2SAT 96
[2021-06-30] MEDS: LASIX 20 MG PO SCH (08:49)
[2021-06-30] MEDS: XARELTO 10 MG TABLET PO SCH (08:49)
[2021-06-30] MEDS: Cardizem CD 180 MG PO SCH (08:49)
--- NOTE | 2021-06-30 08:49 | PCM.DS ---
Discharge Summary Date of Admission: 06/28/21 04:43 Admitting Physician: REKHA ALANIZ Primary Care Provider: FARNAZ ALFONSO Allergies Allergies No Known Drug Allergies Allergy (Verified 06/28/21 05:05) Hospital Summary - Hospital Course Hospital Course: Pt is 51 yo male pt of Dr. Alfnoso who was admitted through ER with SOB, had afib with RVR. CXR nonacute. Troponins neg. He was on cardizem drip initially and transitioned to 120mg Cardizem CD. His puls was still around 100 so was increased to 180mg cardizem daily. Now HR 60s-80s. His O2 was decreased and he did qualify for oxygen at home. He has JESSE but is noncompliant with CPAP. Will be sent home on po prednisone and albuterol nebs (will get machine at home). He likely has COPD but doesn't have a diagnosis as yet. He didn't feel his paxil 20mg was helping his anxiety/depression anymore, so we increased it to 40mg/d. He was taking xanax regularly here in the hospital; I have discontinued it on his home med list as cardizem can cause increase in xanax levels and increase respiratory depression risk; he needs to to f/u with PCP about that. F/u with Dr. Alfonso in 1 week. - Vitals & Intake/Output Vital Signs: Vital Signs Temperature 97.9 F 06/30/21 07:44 Pulse Rate 69 06/30/21 07:44 Respiratory Rate 16 06/30/21 07:44 Blood Pressure 121/77 06/30/21 07:44 O2 Sat by Pulse Oximetry 96 06/30/21 07:44 Intake & Output: Intake & Output 06/27/21 06/28/21 06/29/21 06/30/21 11:59 11:59 11:59 11:59 Intake Total 120 1085 600 Output Total 950 Balance 120 135 600 Weight 136.2 kg 138 kg 136.5 kg - Lab Result Diagrams: 06/30/21 04:30 06/30/21 04:30 Lab Results-Last 24 Hrs: Lab Results-Last 24 Hours 06/30/21 06/30/21 Range/Units 04:30 04:30 WBC 17.9 H (4.0-10.5) K/mm3 RBC 4.79 (4.1-5.6) M/mm3 Hgb 14.5 (12.5-18.0) gm/dl Hct 45.6 (42-50) % MCV 95.2 (78-100) fl MCH 30.3 (26-32) pg MCHC 31.8 L (32-36) g/dl RDW 14.2 H (11.5-14.0) % Plt Count 205 (150-450) K/mm3 MPV 11.0 (7.5-11.0) fl Segmented Neutrophils 85 H (36.-66.) % Band Neutrophils 1 (0.0-2.0) % Lymphocytes (Manual) 9 L (24-44) % Monocytes (Manual) 5 (0.0-12.0) % Platelet Estimate NORMAL (NORMAL) RBC Morphology NORMAL Sodium 136 L (137-145) mmol/L Potassium 4.4 (3.5-5.1) mmol/L Chloride 101 (98-107) mmol/L Carbon Dioxide 29 (22-30) mmol/L Anion Gap 11.3 (5-15) MEQ/L BUN 16 (9-20) mg/dL Creatinine 0.64 L (0.66-1.25) mg/dL Estimated GFR > 60.0 ML/MIN Glucose 190 H (74-106) mg/dL Calcium 9.1 (8.4-10.2) mg/dL Total Bilirubin 0.30 (0.2-1.3) mg/dL AST 43 (17-59) U/L ALT 133 H (0-50) U/L Alkaline Phosphatase 59 (38-126) U/L Serum Total Protein 7.2 (6.3-8.2) g/dL Albumin 3.9 (3.5-5.0) g/dL - Procedures and Test Procedures and Tests throughout Hospitalization: Therapy Orders & Screens 06/27/21 23:11 Respiratory Therapy Assessment DAILY Comment: 06/28/21 04:52 EKG REPEAT IN AM Comment: Respiratory Therapy Consult ROUTINE Comment: Reason For Exam: 06/28/21 08:10 Oxygen Nasal Cannula 2 lpm Comment: Diagnosis: Afib 06/30/21 07:58 Qualify for Home Oxygen TODAY Comment: Diagnosis: Afib Discharge Exam General Appearance: no apparent distress, alert, obese Neurologic Exam: oriented x 3, cooperative Eye Exam: eyes nml inspection Ears, Nose, Throat Exam: moist mucous membranes Neck Exam: normal inspection, supple Respiratory Exam: diminished breath sounds (good air exchange), wheezing (faint scattered expiratory), No crackles/rales, No rhonchi Cardiovascular Exam: regular rate/rhythm, normal heart sounds, No murmur Gastrointestinal/Abdomen Exam: soft, normal bowel sounds, No tenderness, No distention, No mass, No guarding, No rebound Extremity Exam: normal inspection, No pedal edema, No swelling Skin Exam: normal color, warm, dry, No rash Final Diagnosis/Problem List - Final Discharge Diagnosis/Problem (1) Atrial fibrillation with RVR Current Visit: Yes Status: Acute Assessment & Plan: Heart rate is now normal. Home on cardizem CD 180mg daily. F/u in 1 wk with PCP. Code(s): I48.91 - UNSPECIFIED ATRIAL FIBRILLATION (2) Chronic hypoxemic respiratory failure Current Visit: Yes Status: Chronic Assessment & Plan: qualifies for home O2. (3) Wheezing Current Visit: Yes Status: Acute Assessment & Plan: Plan for outpatient PFT - he likely has COPD. Code(s): R06.2 - WHEEZING (4) Elevated liver function tests Current Visit: No Status: Acute Assessment & Plan: much improved, intiially ALT 256, now down to 133. AST initially 133, now nl (43). Code(s): R94.5 - ABNORMAL RESULTS OF LIVER FUNCTION STUDIES (5) Non compliance with medical treatment Current Visit: No Status: Chronic Code(s): Z91.19 - PATIENT'S NONCOMPLIANCE W OTH MEDICAL TREATMENT AND REGIMEN (6) Leukocytosis Current Visit: Yes Status: Acute Assessment & Plan: improved - will check CBC next week. Likely due to steroids. No left shift on yesterday's CBC. Code(s): D72.829 - ELEVATED WHITE BLOOD CELL COUNT, UNSPECIFIED (7) Anxiety Current Visit: Yes Status: Acute Assessment & Plan: on xanax here, and prn at home. It can cause increased risk of respiratory depression when used with the cardizem; if used at home, he should take 1/2 tab sparingly. F/u with Dr. Alfonso. Code(s): F41.9 - ANXIETY DISORDER, UNSPECIFIED - Discharge Disposition: Home, Self-Care Condition: Good Prescriptions: New dilTIAZem HCl [Cardizem Cd] 180 mg PO DAILY #30 cap Prednisone 20 mg [Deltasone 20 mg] 20 mg PO DAILY #17 tablet Albuterol/Ipratropium 3ml Neb* [DUONEB 0.5-3 MG/3 ml Neb] 3 ml IH QID #120 unit Paroxetine HCl 20 mg [Paxil 20 MG] 40 mg PO DAILY #30 tablet Continue Rivaroxaban [Xarelto] 1 tab PO DAILY Albuterol Sulfate [Albuterol Sulfate Hfa] 2 puff PO Q4-6HPRN PRN PRN Reason: Shortness Of Breath Furosemide 20 mg [Lasix 20 mg] 20 mg PO BID Metoprolol Tartrate 50 mg PO BID Discontinued Paroxetine HCl 20 mg [Paxil 20 MG] 1 tab PO DAILY dilTIAZem HCL [Diltiazem HCl] 30 mg PO TID ALPRAZolam [Alprazolam] 0.5 mg PO TID PRN PRN PRN Reason: Anxiety Follow up with: FARNAZ ALFONSO [Primary Care Provider] -
[2021-06-30] MEDS: Paxil 20 MG PO SCH (08:50)
[2021-06-30] MEDS: Lopressor 50 MG PO SCH (08:51)
[2021-06-30] MEDS: DELTASONE 20 MG PO SCH (11:01)
== END 2021-06-30 11:05 | disposition home or self-care (01) | DRG 309 ==
LOC: ED 22:38 → ICU 06-28 04:43 → MED SURG 06-29 09:51
PROVIDERS: ADMIT Family Medicine; ATTEND Family Medicine
DX: I48.20 Chronic atrial fibrillation, unspecified (principal); J96.11 Chronic respiratory failure with hypoxia; I11.0 Hypertensive heart disease with heart failure; I50.9 Heart failure, unspecified; R94.5 Abnormal results of liver function studies; E78.5 Hyperlipidemia, unspecified; Z91.19 Patient's noncompliance with other medical treatment and regimen; D72.829 Elevated white blood cell count, unspecified; F41.9 Anxiety disorder, unspecified; Z79.899 Other long term (current) drug therapy; Z20.828 Contact with and (suspected) exposure to other viral communicable diseases; Z72.0 Tobacco use
CPT/HCPCS: 0241U; 36000; 36415; 71045; 80053; 82947; 83880; 84484; 85025; 85379; 93005; 93041; 94640; 94760; 94762; 96374; 96375; 99285; 99291; J2920; J7609; A9270-GY

== ENCOUNTER 2021-11-04 21:46 | Inpatient (IN) | payer OTHER ==
[2021-11-04] MEDS ORDERED: Cardizem IV 50 MG/10 ML IV ONE ×2 (22:03→22:19)
[2021-11-04] MEDS ORDERED: Sodium Chloride 0.9% 1000 ML 1,000 ML ONE (22:18)
--- NOTE | 2021-11-04 22:19 | ERPHSYRPT ---
- History of Present Illness Time Seen by Provider: 11/04/21 22:15 Source: patient, EMS Exam Limitations: no limitations Patient Subjective Stated Complaint: SOB Triage Nursing Assessment: Pt cool and clammy. Skin pale. Respirations labored and tachypneic. Lung sounds inspiratory and expiratory wheezes throughout. HR >200 afib RVR. Physician History: This is a 51-year-old morbidly obese white male patient of Dr. Alfonso who has history of atrial fibrillation, congestive heart failure, hyperlipidemia and hypertension and presents with atrial fibrillation with RVR with a heart rate in the 180s. He is maintaining his blood pressure well. Patient has a history of atrial fibrillation and is on diltiazem, metoprolol and Xarelto. However, he reports that he has not been taking his medication today. His symptoms of shortness of breath have worsened in the last couple days. 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 Patient's primary care physician is Dr. Alfonso. Patient denies chest pain. He is a current daily smoker of cigarettes. Timing/Duration: day(s) Activities at Onset: none Severity of Pain-Max: none Severity of Pain-Current: none Modifying Factors: Improves With: nothing Nitro Today/Relief: no nitro taken today Aspirin Treatment Today: no aspirin today Associated Symptoms: shortness of breath, No chest pain Allergies/Adverse Reactions: No Known Drug Allergies Allergy (Verified 11/04/21 22:05) Home Medications: Albuterol Sulfate [Albuterol Sulfate Hfa] 2 puff PO Q4-6HPRN PRN 06/28/21 [History] Furosemide 20 mg [Lasix 20 mg] 20 mg PO BID 06/28/21 [History] Metoprolol Tartrate 50 mg PO BID 06/28/21 [History] Rivaroxaban [Xarelto] 20 mg PO DAILY 06/28/21 [History] Diltiazem HCl [Diltiazem 24Hr ER] 240 mg PO DAILY 11/04/21 [History] PARoxetine HCL [Paroxetine HCl] 20 mg PO DAILY 11/04/21 [History] Hx Tetanus, Diphtheria Vaccination/Date Given: Yes Hx Influenza Vaccination/Date Given: No Hx Pneumococcal Vaccination/Date Given: No Travel Risk - International Travel Have you traveled outside of the country in past 3 weeks: No - Coronavirus Screening Are you exhibiting any of the following symptoms?: Yes Symptoms: Shortness of Breath Close contact with a COVID-19 positive Pt in past 14-21 Days: No - Vaccine Status Have you recieved a Covid-19 vaccination: No - Review of Systems Constitutional: No Symptoms Eyes: No Symptoms Ears, Nose, & Throat: No Symptoms Respiratory: Dyspnea Cardiac: Other (Rapid heart rate) Abdominal/Gastrointestinal: No Symptoms Genitourinary Symptoms: No Symptoms Musculoskeletal: No Symptoms Skin: No Symptoms Neurological: No Symptoms Psychological: No Symptoms Endocrine: No Symptoms Hematologic/Lymphatic: No Symptoms Immunological/Allergic: No Symptoms All Other Systems: Reviewed and Negative - Past Medical History Pertinent Past Medical History: Yes Neurological History: Stroke ENT History: Other Cardiac History: Arrhythmia, Congestive Heart Failure, High Cholesterol, Hypertension Respiratory History: No Pertinent History Endocrine Medical History: No Pertinent History Musculoskeletal History: No Pertinent History GI Medical History: No Pertinent History History: No Pertinent History Psycho-Social History: Depression Male Reproductive Disorders: No Pertinent History 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 - Past Surgical History Past Surgical History: Yes Neuro Surgical History: No Pertinent History Cardiac: No Pertinent History Respiratory: No Pertinent History Gastrointestinal: Appendectomy Genitourinary: No Pertinent History Musculoskeletal: No Pertinent History Male Surgical History: No Pertinent History Other Surgical History: stomach surgery as a child - Social History Smoking Status: Current every day smoker How long have you smoked: years Exposure to second hand smoke: No Drug Use: none Patient Lives Alone: No (Long Term) - Nursing Vital Signs Nursing Vital Signs: Initial Vital Signs Pulse Rate 203 H 11/04/21 21:50 Respiratory Rate 28 H 11/04/21 21:50 Blood Pressure 135/104 11/04/21 21:50 O2 Sat by Pulse Oximetry 97 11/04/21 21:50 Pain Scale Pain Intensity 0 - Physical Exam General Appearance: mild distress, alert, anxiety, obese Eye Exam: PERRL/EOMI, eyes nml inspection Ears, Nose, Throat Exam: normal ENT inspection, moist mucous membranes Neck Exam: normal inspection, non-tender, supple, full range of motion Respiratory Exam: normal breath sounds, respiratory distress, airway intact, rhonchi (Bilateral), No chest tenderness Cardiovascular Exam: tachycardia, irregular Gastrointestinal/Abdomen Exam: soft, normal bowel sounds, No tenderness Rectal Exam: not done Back Exam: normal inspection, normal range of motion, No CVA tenderness, No vertebral tenderness Extremity Exam: normal inspection, normal range of motion, pelvis stable Neurologic Exam: alert, oriented x 3, cooperative, 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 nml as tested, normal mood/affect, nml cerebellar function, nml station & gait, sensation nml Skin Exam: normal color, warm, dry Lymphatic Exam: adenopathy SpO2 Interpretation: normal SpO2: 98 O2 Delivery: Room Air - Course Nursing assessment & vital signs reviewed: Yes EKG Interpreted by Me: RATE ([id number]), A-fib, Right Bundle Branch Block, Other (This is the initial EKG on arrival to emergency department) Ordered Tests: Active Orders 24 hr Category Date Time Status 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 Machine Operator STAT Care 11/04/21 22:19 Active EKG-ER Only STAT Care 11/04/21 22:19 Active IV Insertion STAT Care 11/04/21 22:19 Active CHEST 1 VIEW (PORTABLE) Routine Exams 11/04/21 22:10 Taken CHEST WITH CONTRAST [CT] Stat Exams 11/05/21 02:13 Taken CBC W DIFF Stat Lab 11/04/21 22:42 Completed CMP Stat Lab 11/04/21 22:30 Completed D-DIMER QUANTITATIVE Stat Lab 11/04/21 22:42 Completed MAGNESIUM Stat Lab 11/04/21 22:42 Completed NT PRO BNP Stat Lab 11/04/21 22:42 Completed TROPONIN Q4H Lab 11/04/21 22:42 Completed TROPONIN Q4H Lab 11/05/21 02:35 Completed TROPONIN Q4H Lab 11/05/21 06:30 Ordered Respiratory Therapy Assessment DAILY RT 11/04/21 23:04 Completed Transfer Order Routine Transfer 11/05/21 Ordered Medication Summary Generic Name Dose Route Start Last Admin Trade Name Freq PRN Reason Stop Dose Admin Diltiazem HCl 100 mls @ 5 mls/hr 11/04/21 22:19 11/05/21 00:23 Cardizem Drip 100 Mg/100 Ml D5w IV 12/04/21 22:18 10 mg/hr .Q20H PRN 10 mls/hr HEART RATE/ A-FIB Titration Protocol 5 MG/HR Discontinued Medications Generic Name Dose Route Start Last Admin Trade Name Freq PRN Reason Stop Dose Admin Albuterol/Ipratropium Confirm 11/04/21 22:59 Ipratropium/Albuterol Sulfate 3 Ml Ampul.Neb Administered 11/04/21 23:00 Dose 3 ml IH .STK-MED ONE Albuterol/Ipratropium 3 ml 11/04/21 23:03 11/04/21 23:04 Ipratropium/Albuterol Sulfate 3 Ml Ampul.Neb IH 11/04/21 23:04 3 ml STAT ONE Administration Methylprednisolone Sodium 0 mg 11/05/21 03:35 11/05/21 03:50 Succinate 125 mg/ Sterile IV 11/05/21 03:36 125 mg Water 2 ml STAT ONE Administration Diltiazem HCl Confirm 11/04/21 22:03 Diltiazem Hcl Iv 5 Mg/Ml Vial Administered 11/04/21 22:04 Dose 50 mg IV .STK-MED ONE Diltiazem HCl 25 mg 11/04/21 22:19 11/04/21 22:10 Diltiazem Hcl Iv 5 Mg/Ml Vial IV 11/04/21 22:20 25 mg STAT ONE Administration Sodium Chloride Confirm 11/04/21 22:18 Sodium Chloride 0.9% 1000 Ml Administered 11/04/21 22:19 Dose 1,000 mls @ ud .ROUTE .STK-MED ONE Sodium Chloride 500 mls @ 500 mls/hr 11/05/21 00:00 11/05/21 01:01 Sodium Chloride 0.9% 500 Ml IV 11/05/21 00:59 500 mls/hr .Q1H ONE Administration Sodium Chloride Confirm 11/05/21 00:56 Sodium Chloride 0.9% 500 Ml Administered 11/05/21 00:57 Dose 500 mls @ ud IV .STK-MED ONE Methylprednisolone Sodium Succinate Confirm 11/05/21 03:48 Methylprednis Sod Succ 125 Mg/2 Ml Vial Administered 11/05/21 03:49 Dose 125 mg .ROUTE .STK-MED ONE Metoprolol Tartrate 5 mg 11/04/21 22:21 11/04/21 22:25 Metoprolol Tartrate 5 Mg/5 Ml Vial IV 11/04/21 22:22 5 mg STAT ONE Administration Metoprolol Tartrate Confirm 11/04/21 22:22 Metoprolol Tartrate 5 Mg/5 Ml Vial Administered 11/04/21 22:23 Dose 5 mg IV .STK-MED ONE Metoprolol Tartrate 5 mg 11/05/21 00:48 11/05/21 01:01 Metoprolol Tartrate 5 Mg/5 Ml Vial IV 11/05/21 00:49 5 mg STAT ONE Administration Metoprolol Tartrate Confirm 11/05/21 00:56 Metoprolol Tartrate 5 Mg/5 Ml Vial Administered 11/05/21 00:57 Dose 5 mg IV .[employer] ONE Rivaroxaban 20 mg 11/05/21 00:49 11/05/21 01:27 Rivaroxaban 10 Mg Tablet PO 11/05/21 00:50 20 mg STAT ONE Administration Sterile Water Confirm 11/05/21 03:48 Water For Injection,Sterile 10 Ml Vial Administered 11/05/21 03:49 Dose 10 ml IJ .[employer]-MED ONE Lab/Rad Data: Laboratory Result Diagrams 11/04/21 22:42 11/04/21 22:30 Laboratory Results 11/05/21 11/04/21 11/04/21 Range/Units 02:35 23:10 22:42 WBC (4.0-10.5) x10^3/uL RBC (4.1-5.6) x10^6/uL Hgb (12.5-18.0) g/dL Hct (42-50) % MCV (78-100) fL MCH (26-32) pg MCHC (32-36) g/dL RDW (11.5-14.0) % Plt Count (150-450) x10^3/uL MPV (7.5-11.0) fL Gran % (36.0-66.0) % Immature Gran % (Auto) (0.00-0.4) % Nucleat RBC Rel Count (0.00-0.1) % Eos # (Auto) (0-0.5) x10^3/uL Immature Gran # (Auto) (0.00-0.03) x10^3u/L Absolute Lymphs (auto) (1.0-4.6) x10^3/uL Absolute Monos (auto) (0.0-1.3) x10^3/uL Absolute Nucleated RBC (0.00-0.01) x10^3u/L Lymphocytes % (24.0-44.0) % Monocytes % (0.0-12.0) % Eosinophils % (0.00-5.0) % Basophils % (0.0-0.4) % Absolute Granulocytes (1.4-6.9) x10^3/uL Basophils # (0-0.4) x10^3/uL D-Dimer (0.0-0.50) mg/L Sodium (137-145) mmol/L Potassium (3.5-5.1) mmol/L Chloride (98-107) mmol/L Carbon Dioxide (22-30) mmol/L Anion Gap (5-15) MEQ/L BUN (9-20) mg/dL Creatinine (0.66-1.25) mg/dL Estimated GFR ML/MIN Glucose (74-106) mg/dL Calcium (8.4-10.2) mg/dL Magnesium (1.6-2.3) mg/dL Total Bilirubin (0.2-1.3) mg/dL AST (17-59) U/L ALT (0-50) U/L Alkaline Phosphatase (38-126) U/L Troponin I 0.048 H* 0.018 (0.000-0.034) ng/mL NT-Pro-B Natriuret Pep (0-900) pg/mL Serum Total Protein (6.3-8.2) g/dL Albumin (3.5-5.0) g/dL Influenza Type A Ag NEGATIVE (NEGATIVE) Influenza Type B Ag NEGATIVE (NEGATIVE) RSV (PCR) NEGATIVE (Negative) SARS-CoV-2 (PCR) NEGATIVE (NEGATIVE) 11/04/21 11/04/21 11/04/21 Range/Units 22:42 22:42 22:42 WBC 11.8 H (4.0-10.5) x10^3/uL RBC 5.33 (4.1-5.6) x10^6/uL Hgb 16.2 (12.5-18.0) g/dL Hct 49.6 (42-50) % MCV 93.1 (78-100) fL MCH 30.4 (26-32) pg MCHC 32.7 (32-36) g/dL RDW 12.8 (11.5-14.0) % Plt Count 235 (150-450) x10^3/uL MPV 9.7 (7.5-11.0) fL Gran % 72.8 H (36.0-66.0) % Immature Gran % (Auto) 0.5 H (0.00-0.4) % Nucleat RBC Rel Count 0.0 (0.00-0.1) % Eos # (Auto) 0.82 H (0-0.5) x10^3/uL Immature Gran # (Auto) 0.06 H (0.00-0.03) x10^3u/L Absolute Lymphs (auto) 1.59 (1.0-4.6) x10^3/uL Absolute Monos (auto) 0.64 (0.0-1.3) x10^3/uL Absolute Nucleated RBC 0.00 (0.00-0.01) x10^3u/L Lymphocytes % 13.5 L (24.0-44.0) % Monocytes % 5.4 (0.0-12.0) % Eosinophils % 7.0 H (0.00-5.0) % Basophils % 0.8 (0.0-0.4) % Absolute Granulocytes 8.56 H (1.4-6.9) x10^3/uL Basophils # 0.09 (0-0.4) x10^3/uL D-Dimer 0.55 H (0.0-0.50) mg/L Sodium (137-145) mmol/L Potassium (3.5-5.1) mmol/L Chloride (98-107) mmol/L Carbon Dioxide (22-30) mmol/L Anion Gap (5-15) MEQ/L BUN (9-20) mg/dL Creatinine (0.66-1.25) mg/dL Estimated GFR ML/MIN Glucose (74-106) mg/dL Calcium (8.4-10.2) mg/dL Magnesium 1.9 (1.6-2.3) mg/dL Total Bilirubin (0.2-1.3) mg/dL AST (17-59) U/L ALT (0-50) U/L Alkaline Phosphatase (38-126) U/L Troponin I (0.000-0.034) ng/mL NT-Pro-B Natriuret Pep 394 (0-900) pg/mL Serum Total Protein (6.3-8.2) g/dL Albumin (3.5-5.0) g/dL Influenza Type A Ag (NEGATIVE) Influenza Type B Ag (NEGATIVE) RSV (PCR) (Negative) SARS-CoV-2 (PCR) (NEGATIVE) 11/04/21 Range/Units 22:30 WBC (4.0-10.5) x10^3/uL RBC (4.1-5.6) x10^6/uL Hgb (12.5-18.0) g/dL Hct (42-50) % MCV (78-100) fL MCH (26-32) pg MCHC (32-36) g/dL RDW (11.5-14.0) % Plt Count (150-450) x10^3/uL MPV (7.5-11.0) fL Gran % (36.0-66.0) % Immature Gran % (Auto) (0.00-0.4) % Nucleat RBC Rel Count (0.00-0.1) % Eos # (Auto) (0-0.5) x10^3/uL Immature Gran # (Auto) (0.00-0.03) x10^3u/L Absolute Lymphs (auto) (1.0-4.6) x10^3/uL Absolute Monos (auto) (0.0-1.3) x10^3/uL Absolute Nucleated RBC (0.00-0.01) x10^3u/L Lymphocytes % (24.0-44.0) % Monocytes % (0.0-12.0) % Eosinophils % (0.00-5.0) % Basophils % (0.0-0.4) % Absolute Granulocytes (1.4-6.9) x10^3/uL Basophils # (0-0.4) x10^3/uL D-Dimer (0.0-0.50) mg/L Sodium 137 (137-145) mmol/L Potassium 4.2 (3.5-5.1) mmol/L Chloride 104 (98-107) mmol/L Carbon Dioxide 24 (22-30) mmol/L Anion Gap 13.2 (5-15) MEQ/L BUN 11 (9-20) mg/dL Creatinine 0.85 (0.66-1.25) mg/dL Estimated GFR > 60.0 ML/MIN Glucose 147 H (74-106) mg/dL Calcium 9.3 (8.4-10.2) mg/dL Magnesium (1.6-2.3) mg/dL Total Bilirubin 0.50 (0.2-1.3) mg/dL AST 140 H (17-59) U/L ALT 276 H (0-50) U/L Alkaline Phosphatase 92 (38-126) U/L Troponin I (0.000-0.034) ng/mL NT-Pro-B Natriuret Pep (0-900) pg/mL Serum Total Protein 7.9 (6.3-8.2) g/dL Albumin 4.3 (3.5-5.0) g/dL Influenza Type A Ag (NEGATIVE) Influenza Type B Ag (NEGATIVE) RSV (PCR) (Negative) SARS-CoV-2 (PCR) (NEGATIVE) - Progress Progress: improved, re-examined Air Movement: fair Progress Note: 11/04/21 23:17 Second twelve-lead EKG was performed on 2214 and this was after Cardizem 25 mg intravenous bolus. The heart rate dropped to 129 bpm. Patient has improved atrial fibrillation. Third twelve-lead EKG was performed at 2250 after Cardizem bolus, Cardizem drip and 5 mg of intravenous Lopressor. There is prolonged QT interval there is now atrial fibrillation and resolution of the rapid ventricular rate. Heart rate is 100 bpm 11/04/21 23:27 Chest x-ray shows no acute cardiopulmonary process 11/05/21 03:48 CTA of chest shows no pulmonary embolus. There is no evidence of acute pneumonia. There are findings that may be consistent with COVID-19 infection. Medical decision making: I spoke with Dr. Robert Zhu who is covering for Dr. Alfonso's patient today. I reviewed the patient history, physical findings, and results of the patient's EKG, chest x-ray, laboratory results including the troponin that increased from 0.018-0.04, and the results of the CAT scan of the chest. We will admit him into the hospital on telemetry unit. He will be on a Cardizem drip and be provided his daily Xarelto and metoprolol. We will repeat troponins and twelve-lead EKG. We will also provide him with Solu-Medrol intravenously and nebulizer treatments.. Blood Culture(s) Obtained: No Antibiotics given: No Discussed with : Yessica Counseled pt/family regarding: lab results, diagnosis, need for follow-up, rad results - Departure Departure Disposition: In-patient Admission Clinical Impression: Atrial fibrillation with RVR, Bronchitis Condition: Fair Critical Care Time: Yes Critical Care Time(excluding separately billable procedures): Critical 30-74 mins (45 minutes) Referrals: FARNAZ ALFONSO [Primary Care Provider] - Follow up/PCP as directed
[2021-11-04] MEDS ORDERED: LOPRESSOR INJECTION IV ONE ×2 (22:21→22:22)
[2021-11-04 22:44] LABS: Absolute Neutrophil Ct (ANC) 8.56 x10^3/uL (1.4-6.9); Basophil (Absolute #) 0.09 x10^3/uL (0-0.4); Eosinophil (Absolute #) 0.82 x10^3/uL (0-0.5); Hematocrit 49.6 % (42-50); Hemoglobin 16.2 g/dL (12.5-18.0); Lymphocyte (Absolute #) 1.59 x10^3/uL (1.0-4.6); Lymphocytes % 13.5 % (24.0-44.0); Mean Cell Volume 93.1 fL (78-100); Mean Corpuscular Hemoglobin 30.4 pg (26-32); Mean Corpuscular Hgb Concent. 32.7 g/dL (32-36); Mean Platelet Volume 9.7 fL (7.5-11.0); Monocyte (Absolute #) 0.64 x10^3/uL (0.0-1.3); Monocytes % 5.4 % (0.0-12.0); Neutrophil % 72.8 % (36.0-66.0); Platelet Count 235 x10^3/uL (150-450); Red Blood Count 5.33 x10^6/uL (4.1-5.6); Red Cell Distribution Width 12.8 % (11.5-14.0); White Blood Count 11.8 x10^3/uL (4.0-10.5)
[2021-11-04] MEDS: CARDIZEM DRIP 100 MG/100 ML D5W 100 ML IV PRN (22:53)
[2021-11-04] MEDS ORDERED: DUONEB 0.5-3 MG/3 ml Neb IH ONE ×2 (22:59→23:03)
[2021-11-04 23:07] LABS: MAGNESIUM 1.9 mg/dL (1.6-2.3)
[2021-11-04 23:39] LABS: ALBUMIN 4.3 g/dL (3.5-5.0); ALKALINE PHOSPHATASE 92 U/L (38-126); ANION GAP 13.2 MEQ/L (5-15); BLOOD UREA NITROGEN 11 mg/dL (9-20); CHLORIDE 104 mmol/L (98-107); Calcium 9.3 mg/dL (8.4-10.2); Carbon Dioxide 24 mmol/L (22-30); Creatinine 1 0.85 mg/dL (0.66-1.25); EST GLOMERULAR FILTRATION RATE > 60.0 ML/MIN; Glucose 147 mg/dL (74-106); Potassium 4.2 mmol/L (3.5-5.1); SGOT/AST 140 U/L (17-59); SGPT/ALT 276 U/L (0-50); SODIUM 137 mmol/L (137-145); Total Protein 7.9 g/dL (6.3-8.2)
[2021-11-04 23:42] LABS: INFLUENZA A NEGATIVE (NEGATIVE); INFLUENZA B NEGATIVE (NEGATIVE); RESPIRATORY SYNCTIAL VIRUS NEGATIVE (Negative); SARS-CoV-2 Xpert Express NEGATIVE (NEGATIVE)
[2021-11-05] MEDS ORDERED: LOPRESSOR INJECTION IV ONE ×2 (00:48→00:56)
[2021-11-05] MEDS ORDERED: XARELTO 10 MG TABLET PO ONE (00:49)
[2021-11-05] MEDS ORDERED: Sodium Chloride 0.9% 500 ML 500 ML IV ONE ×2 (00:56)
[2021-11-05] MEDS ORDERED: solu-MEDROL 125 MG, Sterile H2O 10 ml 2 ML IV ONE ×2 (03:35)
[2021-11-05] MEDS ORDERED: Sterile H2O 10 ml IJ ONE (03:48)
[2021-11-05] MEDS ORDERED: solu-MEDROL ONE ×2 (03:48→17:19)
[2021-11-05] MEDS ORDERED: Zofran 4 MG/2 ML VIAL IV PRN (04:39)
[2021-11-05] MEDS ORDERED: TYLENOL 325 MG PO PRN (04:39)
[2021-11-05] MEDS ORDERED: DUONEB 0.5-3 MG/3 ml Neb IH ONE (04:42)
[2021-11-05] MEDS: DUONEB 0.5-3 MG/3 ml Neb IH SCH ×6 (04:47→22:10)
[2021-11-05] MEDS ORDERED: solu-MEDROL 125 MG, Sterile H2O 10 ml 2 ML IV SCH ×2 (06:00)
[2021-11-05] MEDS: CARDIZEM DRIP 100 MG/100 ML D5W 100 ML IV PRN ×2 (07:22→14:05)
--- NOTE | 2021-11-05 08:53 | PCM.HP ---
History of Present Illness - Chief Complaint Chief Complaint: AFIB RVR History of Present Illness: is a 51 year old male pt of Dr. Alfonso with PMHx afib and COPD who was admitted through ER with afib with RVR. His HR was over 200 initially; was started on cardizem drip and is currently 110s. He had not taken his meds for a few days. Had been sick with cough x 2 weeks (son was sick) and had SOB. Was sent home from last hospitalization (June 2021) with O2, 2L NC, which he wears intermittently. He denies fever. Had a little dizziness with standing. He sleeps in his chair. - Review of Systems Respiratory: Cough, Short Of Breath Neurological: Dizziness (lightheadedness with standing recently) Psychological: Anxiety, Depression, No Suicidal Ideations, No Homicidal Ideations All Other Systems: Reviewed and Negative Medications & Allergies Home Medications: Home Medication List Albuterol Sulfate [Albuterol Sulfate Hfa] 2 puff PO Q4-6HPRN PRN 06/28/21 [History Confirmed 11/04/21] Furosemide 20 mg [Lasix 20 mg] 20 mg PO BID 06/28/21 [History Confirmed 11/04/21] Metoprolol Tartrate 50 mg PO BID 06/28/21 [History Confirmed 11/04/21] Rivaroxaban [Xarelto] 20 mg PO DAILY 06/28/21 [History Confirmed 11/04/21] Albuterol/Ipratropium 3ml Neb* [DUONEB 0.5-3 MG/3 ml Neb] 3 ml IH QID #120 unit 06/30/21 [Rx Confirmed 11/04/21] Diltiazem HCl [Diltiazem 24Hr ER] 240 mg PO DAILY 11/04/21 [History Confirmed 11/04/21] PARoxetine HCL [Paroxetine HCl] 20 mg PO DAILY 11/04/21 [History Confirmed 11/04/21] Allergies/Adverse Reactions: Allergies Allergy/AdvReac Type Severity Reaction Status Date / Time No Known Drug Allergies Allergy Verified 11/04/21 22:05 - Past Medical History Past Medical History: Yes Neurological History: Stroke ENT History: Other Cardiac History: Arrhythmia, Congestive Heart Failure, High Cholesterol, Hypertension Respiratory History: No Pertinent History Endocrine Medical History: No Pertinent History Musculoskelatal History: No Pertinent History GI Medical History: No Pertinent History History: No Pertinent History Pyscho-Social History: Depression Male Reproductive Disorders: No Pertinent History Comment: 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 - Past Surgical History Past Surgical History: Yes Neuro Surgical History: No Pertinent History Cardiac History: No Pertinent History Respiratory Surgery: No Pertinent History GI Surgical History: Appendectomy Genitourinary Surgical Hx: No Pertinent History Musculskeletal Surgical Hx: No Pertinent History Male Surgical History: No Pertinent History Other Surgical History: stomach surgery as a child - Social History Smoking Status: Current every day smoker How long have you smoked: years Exposure to second hand smoke: No Alcohol: Daily Drug Use: none - Physical Exam Vital Signs: Vital Signs - 24 hr Temp Pulse Resp BP BP Pulse Ox 11/05/21 08:00 114 H 18 116/99 98 11/05/21 07:30 118 H 11/05/21 07:22 118 H 11/05/21 07:11 113 H 18 155/91 11/05/21 07:00 98.8 F 107 H 18 116/99 95 11/05/21 06:59 108 H 28 H 95 11/05/21 06:00 103 H 16 157/111 11/05/21 05:10 98.8 F 106 H 17 136/107 99 11/05/21 05:00 103 H 20 128/87 128/87 96 11/05/21 04:47 109 H 20 98 11/05/21 04:15 104 H 16 145/94 97 11/05/21 03:58 98 11/05/21 03:30 105 H 16 116/69 96 11/05/21 02:30 116 H 16 134/90 98 11/05/21 01:30 105 H 16 119/86 96 11/05/21 01:15 106 H 16 110/80 96 11/05/21 01:00 119 H 16 149/84 98 11/05/21 00:23 124 H 22 124/93 11/05/21 00:00 124 H 22 124/93 95 11/04/21 23:15 119 H 19 119/90 95 11/04/21 23:05 107 H 16 92 L 11/04/21 23:00 111 H 22 110/93 95 11/04/21 22:56 114 H 20 127/81 93 L 11/04/21 22:53 114 H 20 127/81 11/04/21 22:50 92 H 21 90 L 11/04/21 22:40 91 H 19 90 L 11/04/21 22:37 98.4 F 92 H 20 118/82 92 L 11/04/21 22:30 88 21 118/82 90 L 11/04/21 22:20 117 H 22 94 L 11/04/21 22:09 132 H 26 H 132/110 98 11/04/21 22:00 206 H 25 H 132/90 97 11/04/21 21:50 203 H 28 H 135/104 97 General Appearance: no apparent distress, alert, obese Neurologic Exam: oriented x 3, cooperative Eye Exam: eyes nml inspection Ears, Nose, Throat Exam: moist mucous membranes Neck Exam: normal inspection, non-tender, No lymphadenopathy, No thyromegaly Respiratory Exam: diminished breath sounds (poor to fair air exchange), prolonged expirations, wheezing (throughout), No crackles/rales, No rhonchi Cardiovascular Exam: tachycardia, irregular, No murmur Gastrointestinal/Abdomen Exam: soft, normal bowel sounds, No tenderness, No mass, No guarding, No rebound Back Exam: normal inspection, No rash Extremity Exam: normal inspection, No pedal edema, No swelling Skin Exam: normal color, warm, dry, No rash Results - Labs Lab/Micro Results: Lab Results-Last 24 Hours 11/04/21 11/04/21 11/04/21 Range/Units 22:30 22:42 22:42 WBC 11.8 H (4.0-10.5) x10^3/uL RBC 5.33 (4.1-5.6) x10^6/uL Hgb 16.2 (12.5-18.0) g/dL Hct 49.6 (42-50) % MCV 93.1 (78-100) fL MCH 30.4 (26-32) pg MCHC 32.7 (32-36) g/dL RDW 12.8 (11.5-14.0) % Plt Count 235 (150-450) x10^3/uL MPV 9.7 (7.5-11.0) fL Gran % 72.8 H (36.0-66.0) % Immature Gran % (Auto) 0.5 H (0.00-0.4) % Nucleat RBC Rel Count 0.0 (0.00-0.1) % Eos # (Auto) 0.82 H (0-0.5) x10^3/uL Immature Gran # (Auto) 0.06 H (0.00-0.03) x10^3u/L Absolute Lymphs (auto) 1.59 (1.0-4.6) x10^3/uL Absolute Monos (auto) 0.64 (0.0-1.3) x10^3/uL Absolute Nucleated RBC 0.00 (0.00-0.01) x10^3u/L Lymphocytes % 13.5 L (24.0-44.0) % Monocytes % 5.4 (0.0-12.0) % Eosinophils % 7.0 H (0.00-5.0) % Basophils % 0.8 (0.0-0.4) % Absolute Granulocytes 8.56 H (1.4-6.9) x10^3/uL Basophils # 0.09 (0-0.4) x10^3/uL D-Dimer (0.0-0.50) mg/L Sodium 137 (137-145) mmol/L Potassium 4.2 (3.5-5.1) mmol/L Chloride 104 (98-107) mmol/L Carbon Dioxide 24 (22-30) mmol/L Anion Gap 13.2 (5-15) MEQ/L BUN 11 (9-20) mg/dL Creatinine 0.85 (0.66-1.25) mg/dL Estimated GFR > 60.0 ML/MIN Glucose 147 H (74-106) mg/dL Calcium 9.3 (8.4-10.2) mg/dL Magnesium 1.9 (1.6-2.3) mg/dL Total Bilirubin 0.50 (0.2-1.3) mg/dL AST 140 H (17-59) U/L ALT 276 H (0-50) U/L Alkaline Phosphatase 92 (38-126) U/L Troponin I (0.000-0.034) ng/mL NT-Pro-B Natriuret Pep 394 (0-900) pg/mL Serum Total Protein 7.9 (6.3-8.2) g/dL Albumin 4.3 (3.5-5.0) g/dL Influenza Type A Ag (NEGATIVE) Influenza Type B Ag (NEGATIVE) RSV (PCR) (Negative) SARS-CoV-2 (PCR) (NEGATIVE) 11/04/21 11/04/21 11/04/21 Range/Units 22:42 22:42 23:10 WBC (4.0-10.5) x10^3/uL RBC (4.1-5.6) x10^6/uL Hgb (12.5-18.0) g/dL Hct (42-50) % MCV (78-100) fL MCH (26-32) pg MCHC (32-36) g/dL RDW (11.5-14.0) % Plt Count (150-450) x10^3/uL MPV (7.5-11.0) fL Gran % (36.0-66.0) % Immature Gran % (Auto) (0.00-0.4) % Nucleat RBC Rel Count (0.00-0.1) % Eos # (Auto) (0-0.5) x10^3/uL Immature Gran # (Auto) (0.00-0.03) x10^3u/L Absolute Lymphs (auto) (1.0-4.6) x10^3/uL Absolute Monos (auto) (0.0-1.3) x10^3/uL Absolute Nucleated RBC (0.00-0.01) x10^3u/L Lymphocytes % (24.0-44.0) % Monocytes % (0.0-12.0) % Eosinophils % (0.00-5.0) % Basophils % (0.0-0.4) % Absolute Granulocytes (1.4-6.9) x10^3/uL Basophils # (0-0.4) x10^3/uL D-Dimer 0.55 H (0.0-0.50) mg/L Sodium (137-145) mmol/L Potassium (3.5-5.1) mmol/L Chloride (98-107) mmol/L Carbon Dioxide (22-30) mmol/L Anion Gap (5-15) MEQ/L BUN (9-20) mg/dL Creatinine (0.66-1.25) mg/dL Estimated GFR ML/MIN Glucose (74-106) mg/dL Calcium (8.4-10.2) mg/dL Magnesium (1.6-2.3) mg/dL Total Bilirubin (0.2-1.3) mg/dL AST (17-59) U/L ALT (0-50) U/L Alkaline Phosphatase (38-126) U/L Troponin I 0.018 (0.000-0.034) ng/mL NT-Pro-B Natriuret Pep (0-900) pg/mL Serum Total Protein (6.3-8.2) g/dL Albumin (3.5-5.0) g/dL Influenza Type A Ag NEGATIVE (NEGATIVE) Influenza Type B Ag NEGATIVE (NEGATIVE) RSV (PCR) NEGATIVE (Negative) SARS-CoV-2 (PCR) NEGATIVE (NEGATIVE) 11/05/21 Range/Units 02:35 WBC (4.0-10.5) x10^3/uL RBC (4.1-5.6) x10^6/uL Hgb (12.5-18.0) g/dL Hct (42-50) % MCV (78-100) fL MCH (26-32) pg MCHC (32-36) g/dL RDW (11.5-14.0) % Plt Count (150-450) x10^3/uL MPV (7.5-11.0) fL Gran % (36.0-66.0) % Immature Gran % (Auto) (0.00-0.4) % Nucleat RBC Rel Count (0.00-0.1) % Eos # (Auto) (0-0.5) x10^3/uL Immature Gran # (Auto) (0.00-0.03) x10^3u/L Absolute Lymphs (auto) (1.0-4.6) x10^3/uL Absolute Monos (auto) (0.0-1.3) x10^3/uL Absolute Nucleated RBC (0.00-0.01) x10^3u/L Lymphocytes % (24.0-44.0) % Monocytes % (0.0-12.0) % Eosinophils % (0.00-5.0) % Basophils % (0.0-0.4) % Absolute Granulocytes (1.4-6.9) x10^3/uL Basophils # (0-0.4) x10^3/uL D-Dimer (0.0-0.50) mg/L Sodium (137-145) mmol/L Potassium (3.5-5.1) mmol/L Chloride (98-107) mmol/L Carbon Dioxide (22-30) mmol/L Anion Gap (5-15) MEQ/L BUN (9-20) mg/dL Creatinine (0.66-1.25) mg/dL Estimated GFR ML/MIN Glucose (74-106) mg/dL Calcium (8.4-10.2) mg/dL Magnesium (1.6-2.3) mg/dL Total Bilirubin (0.2-1.3) mg/dL AST (17-59) U/L ALT (0-50) U/L Alkaline Phosphatase (38-126) U/L Troponin I 0.048 H* (0.000-0.034) ng/mL NT-Pro-B Natriuret Pep (0-900) pg/mL Serum Total Protein (6.3-8.2) g/dL Albumin (3.5-5.0) g/dL Influenza Type A Ag (NEGATIVE) Influenza Type B Ag (NEGATIVE) RSV (PCR) (Negative) SARS-CoV-2 (PCR) (NEGATIVE) - Radiology Impressions Radiology Exams & Impressions: Radiology Procedures Category Date Time Status CHEST 1 VIEW (PORTABLE) Routine Exams 11/04/21 22:10 Taken CHEST WITH CONTRAST [CT] Stat Exams 11/05/21 02:13 Taken - Other Procedures and Tests Respiratory Therapy 11/04/21 23:04 Respiratory Therapy Assessment DAILY 11/05/21 04:39 Oxygen Nasal Cannula 2 lpm Assessment/Plan (1) Atrial fibrillation with RVR Current Visit: Yes Status: Acute Assessment & Plan: Will see what HR does with lopressor dose. on 20mg cardizem currently (drip IV). Code(s): I48.91 - UNSPECIFIED ATRIAL FIBRILLATION (2) COPD exacerbation Current Visit: Yes Status: Acute Assessment & Plan: on IV steroid 125mg q8h - will add rocephin and zithromax. I don't see a dx of COPD on his chart, but I am certain he has it. May need PFT outpatient, he should d/w Dr. Alfonso. Code(s): J44.1 - CHRONIC OBSTRUCTIVE PULMONARY DISEASE W (ACUTE) EXACERBATION (3) Chronic hypoxemic respiratory failure Current Visit: No Status: Chronic
[2021-11-05] MEDS: ROCEPHIN 1 Gm-D5w 50 ml Bag** 1 G/50 ML IVPB IV SCH (09:00)
[2021-11-05] MEDS: Lopressor 50 MG PO SCH ×2 (09:00→21:40)
--- NOTE | 2021-11-05 09:01 | XRAY ---
Indication: Cough, short of breath, and elevated d-dimer. Multiple contiguous axial images obtained through the chest using 100 cc Isovue 370 contrast and PE protocol. Comparison: None Good opacification of the pulmonary arteries. No pulmonary embolus. Heart is not enlarged. Aorta is normal in course and caliber. No pathologic mediastinal/hilar lymphadenopathy. Lungs inflated with minimal bilateral upper lobe patchy groundglass airspace disease, left greater than right. No consolidation/effusion. Bony thorax intact with mild degenerative changes throughout the spine. Limited upper abdomen demonstrates fatty liver. Impression: 1. Negative pulmonary embolus. 2. Minimal bilateral upper lobe patchy groundglass air space disease. 3. Incidental fatty liver. Comment: Preliminary interpretation made by [facility]. No critical discrepancy.
--- NOTE | 2021-11-05 09:02 | XRAY ---
Indication: Short of breath. Comparison: June 27, 2021 Portable chest limited as right costophrenic angle not completely included. Visualized heart and lungs remain normal. Bony thorax intact again with mild degenerative changes and minimal dextroscoliosis. No new/acute findings.
[2021-11-05 09:05] LABS: Absolute Neutrophil Ct (ANC) 8.59 x10^3/uL (1.4-6.9); Basophil (Absolute #) 0.04 x10^3/uL (0-0.4); Eosinophil % 1.6 % (0.00-5.0); Eosinophil (Absolute #) 0.16 x10^3/uL (0-0.5); Hemoglobin 15.7 g/dL (12.5-18.0); Lymphocytes % 10.9 % (24.0-44.0); Mean Cell Volume 92.2 fL (78-100); Mean Corpuscular Hemoglobin 30.8 pg (26-32); Mean Corpuscular Hgb Concent. 33.4 g/dL (32-36); Mean Platelet Volume 9.8 fL (7.5-11.0); Monocyte (Absolute #) 0.16 x10^3/uL (0.0-1.3); Monocytes % 1.6 % (0.0-12.0); Platelet Count 224 x10^3/uL (150-450); White Blood Count 10.1 x10^3/uL (4.0-10.5)
[2021-11-05 09:23] LABS: ANION GAP 14.4 MEQ/L (5-15); BLOOD UREA NITROGEN 10 mg/dL (9-20); CHLORIDE 102 mmol/L (98-107); Calcium 9.2 mg/dL (8.4-10.2); Carbon Dioxide 24 mmol/L (22-30); Creatinine 1 0.79 mg/dL (0.66-1.25); EST GLOMERULAR FILTRATION RATE > 60.0 ML/MIN; Glucose 193 mg/dL (74-106); Potassium 4.2 mmol/L (3.5-5.1); SODIUM 136 mmol/L (137-145)
[2021-11-05] MEDS: Lactated Ringers 1,000 ML IV SCH ×2 (09:41→20:38)
[2021-11-05 09:42] LABS: TROPONIN 0.023 ng/mL (0.000-0.034)
[2021-11-05] MEDS: Zithromax 500 MG/ 250 ML NaCl Premix 500 MG/250 ML IVPB IV SCH (09:47)
[2021-11-05] MEDS: solu-MEDROL 80 MG, Sterile H2O 10 ml 2 ML IV SCH ×6 (11:02→23:53)
[2021-11-05] MEDS ORDERED: solu-MEDROL 80 MG, Sterile H2O 10 ml 1 ML IV SCH ×2 (12:00)
[2021-11-05] MEDS: XARELTO 10 MG TABLET PO SCH (17:20)
[2021-11-06] MEDS: CARDIZEM DRIP 100 MG/100 ML D5W 100 ML IV PRN (00:27)
[2021-11-06] MEDS: DUONEB 0.5-3 MG/3 ml Neb IH SCH ×6 (02:41→22:09)
[2021-11-06 05:14] LABS: Basophil (Absolute #) 0.02 x10^3/uL (0-0.4); Eosinophil % 0.1 % (0.00-5.0); Eosinophil (Absolute #) 0.01 x10^3/uL (0-0.5); Hematocrit 45.9 % (42-50); Lymphocyte (Absolute #) 1.48 x10^3/uL (1.0-4.6); Lymphocytes % 8.2 % (24.0-44.0); Mean Cell Volume 93.1 fL (78-100); Mean Corpuscular Hemoglobin 30.4 pg (26-32); Mean Corpuscular Hgb Concent. 32.7 g/dL (32-36); Mean Platelet Volume 10.3 fL (7.5-11.0); Monocytes % 2.8 % (0.0-12.0); Platelet Count 239 x10^3/uL (150-450); Red Blood Count 4.93 x10^6/uL (4.1-5.6); Red Cell Distribution Width 13.2 % (11.5-14.0)
[2021-11-06 05:48] LABS: ALBUMIN 4.1 g/dL (3.5-5.0); ALKALINE PHOSPHATASE 78 U/L (38-126); ANION GAP 11.1 MEQ/L (5-15); BLOOD UREA NITROGEN 15 mg/dL (9-20); CHLORIDE 104 mmol/L (98-107); Calcium 9.3 mg/dL (8.4-10.2); Carbon Dioxide 26 mmol/L (22-30); Creatinine 1 0.63 mg/dL (0.66-1.25); EST GLOMERULAR FILTRATION RATE > 60.0 ML/MIN; Glucose 186 mg/dL (74-106); NT PRO BNP 653 pg/mL (0-900); Potassium 4.3 mmol/L (3.5-5.1); SGOT/AST 91 U/L (17-59); SGPT/ALT 204 U/L (0-50); SODIUM 137 mmol/L (137-145); Total Protein 7.6 g/dL (6.3-8.2)
[2021-11-06] MEDS: solu-MEDROL 80 MG, Sterile H2O 10 ml 2 ML IV SCH ×8 (05:56→23:54)
[2021-11-06] MEDS: Lactated Ringers 1,000 ML IV SCH (05:59)
[2021-11-06] MEDS ORDERED: Tums EX 750 MG ONE (07:04)
[2021-11-06] MEDS ORDERED: Tums EX 750 MG PO PRN (07:04)
--- NOTE | 2021-11-06 08:36 | PCM.NOTE ---
Date and Time: 11/06/21833 Subjective Assessment: patient states he is feeling some better, still requiring oxygen and wheezing but improved. no chest pain, heart rate has been well controlled on cardizem gtt at 10mg/hr but was discontinued early this morning with no po med given Objective Exam General Appearance: no apparent distress, obese Neurologic Exam: alert, oriented x 3 Respiratory Exam: prolonged expirations, wheezing Cardiovascular Exam: irregular Gastrointestinal/Abdomen Exam: soft, No tenderness, No mass Extremity Exam: normal inspection, normal range of motion OBJECTIVE DATA Vital Signs: Vital Signs - 24 hr Temp Pulse Resp BP BP Pulse Ox 11/06/21 08:25 119 H 114/72 11/06/21 07:40 108 H 11/06/21 07:39 97 F 108 H 18 109/88 96 11/06/21 07:30 120 H 24 97 11/06/21 07:18 111 H 11/06/21 06:57 111 H 13 136/93 11/06/21 06:00 93 H 20 152/102 11/06/21 05:00 103 H 13 133/95 11/06/21 04:00 98.8 F 98 H 19 143/88 137/80 11/06/21 03:00 96 H 14 121/91 11/06/21 02:42 108 H 24 95 11/06/21 02:00 106 H 15 103/59 11/06/21 01:00 100 H 15 137/80 11/06/21 00:01 100 H 11/06/21 00:00 98.8 F 100 H 15 118/91 137/80 98 11/05/21 23:00 99 H 13 130/97 11/05/21 22:10 117 H 19 96 11/05/21 22:00 123 H 11/05/21 21:00 92 H 17 142/86 11/05/21 20:00 92 H 18 137/90 137/90 97 11/05/21 18:55 92 H 16 158/95 11/05/21 17:59 94 H 22 98 11/05/21 17:56 91 H 141/94 11/05/21 17:00 87 125/97 11/05/21 16:00 97.9 F 88 16 129/89 129/81 97 11/05/21 15:02 81 131/88 11/05/21 14:37 90 24 99 11/05/21 14:00 79 106/65 11/05/21 13:02 84 128/84 11/05/21 12:12 81 142/95 11/05/21 12:00 98.8 F 71 18 142/95 98 11/05/21 11:04 73 169/94 11/05/21 10:20 81 18 98 11/05/21 10:00 85 154/96 11/05/21 09:07 103 H 134/105 11/05/21 09:00 103 H 20 134/105 96 Pain Assessment - Last Documented Pain Intensity 0 Intake and Output: Intake & Output 11/03/21 11/04/21 11/05/21 11/06/21 11:59 11:59 11:59 11:59 Intake Total 480 4281 Output Total 1700 3200 Balance -1220 1081 Weight 130.8 kg Lab Results: Lab Results-Last 24 Hours 11/05/21 11/05/21 11/05/21 Range/Units 09:00 09:00 09:00 WBC 10.1 (4.0-10.5) x10^3/uL RBC 5.10 (4.1-5.6) x10^6/uL Hgb 15.7 (12.5-18.0) g/dL Hct 47.0 (42-50) % MCV 92.2 (78-100) fL MCH 30.8 (26-32) pg MCHC 33.4 (32-36) g/dL RDW 13.0 (11.5-14.0) % Plt Count 224 (150-450) x10^3/uL MPV 9.8 (7.5-11.0) fL Gran % 85.0 H (36.0-66.0) % Immature Gran % (Auto) 0.5 H (0.00-0.4) % Nucleat RBC Rel Count 0.0 (0.00-0.1) % Eos # (Auto) 0.16 (0-0.5) x10^3/uL Immature Gran # (Auto) 0.05 H (0.00-0.03) x10^3u/L Absolute Lymphs (auto) 1.10 (1.0-4.6) x10^3/uL Absolute Monos (auto) 0.16 (0.0-1.3) x10^3/uL Absolute Nucleated RBC 0.00 (0.00-0.01) x10^3u/L Lymphocytes % 10.9 L (24.0-44.0) % Monocytes % 1.6 (0.0-12.0) % Eosinophils % 1.6 (0.00-5.0) % Basophils % 0.4 (0.0-0.4) % Absolute Granulocytes 8.59 H (1.4-6.9) x10^3/uL Basophils # 0.04 (0-0.4) x10^3/uL Sodium 136 L (137-145) mmol/L Potassium 4.2 (3.5-5.1) mmol/L Chloride 102 (98-107) mmol/L Carbon Dioxide 24 (22-30) mmol/L Anion Gap 14.4 (5-15) MEQ/L BUN 10 (9-20) mg/dL Creatinine 0.79 (0.66-1.25) mg/dL Estimated GFR > 60.0 ML/MIN Glucose 193 H (74-106) mg/dL Calcium 9.2 (8.4-10.2) mg/dL Total Bilirubin (0.2-1.3) mg/dL AST (17-59) U/L ALT (0-50) U/L Alkaline Phosphatase (38-126) U/L Troponin I 0.023 (0.000-0.034) ng/mL NT-Pro-B Natriuret Pep 538 (0-900) pg/mL Serum Total Protein (6.3-8.2) g/dL Albumin (3.5-5.0) g/dL 11/06/21 11/06/21 Range/Units 04:30 04:30 WBC 18.0 H (4.0-10.5) x10^3/uL RBC 4.93 (4.1-5.6) x10^6/uL Hgb 15.0 (12.5-18.0) g/dL Hct 45.9 (42-50) % MCV 93.1 (78-100) fL MCH 30.4 (26-32) pg MCHC 32.7 (32-36) g/dL RDW 13.2 (11.5-14.0) % Plt Count 239 (150-450) x10^3/uL MPV 10.3 (7.5-11.0) fL Gran % 88.0 H (36.0-66.0) % Immature Gran % (Auto) 0.8 H (0.00-0.4) % Nucleat RBC Rel Count 0.0 (0.00-0.1) % Eos # (Auto) 0.01 (0-0.5) x10^3/uL Immature Gran # (Auto) 0.14 H (0.00-0.03) x10^3u/L Absolute Lymphs (auto) 1.48 (1.0-4.6) x10^3/uL Absolute Monos (auto) 0.50 (0.0-1.3) x10^3/uL Absolute Nucleated RBC 0.00 (0.00-0.01) x10^3u/L Lymphocytes % 8.2 L (24.0-44.0) % Monocytes % 2.8 (0.0-12.0) % Eosinophils % 0.1 (0.00-5.0) % Basophils % 0.1 (0.0-0.4) % Absolute Granulocytes 15.80 H (1.4-6.9) x10^3/uL Basophils # 0.02 (0-0.4) x10^3/uL Sodium 137 (137-145) mmol/L Potassium 4.3 (3.5-5.1) mmol/L Chloride 104 (98-107) mmol/L Carbon Dioxide 26 (22-30) mmol/L Anion Gap 11.1 (5-15) MEQ/L BUN 15 (9-20) mg/dL Creatinine 0.63 L (0.66-1.25) mg/dL Estimated GFR > 60.0 ML/MIN Glucose 186 H (74-106) mg/dL Calcium 9.3 (8.4-10.2) mg/dL Total Bilirubin 0.40 (0.2-1.3) mg/dL AST 91 H (17-59) U/L ALT 204 H (0-50) U/L Alkaline Phosphatase 78 (38-126) U/L Troponin I (0.000-0.034) ng/mL NT-Pro-B Natriuret Pep 653 (0-900) pg/mL Serum Total Protein 7.6 (6.3-8.2) g/dL Albumin 4.1 (3.5-5.0) g/dL Radiology Exams: Radiology Procedures Category Date Time Status CHEST 1 VIEW (PORTABLE) Routine Exams 11/04/21 22:10 Completed CHEST WITH CONTRAST [CT] Stat Exams 11/05/21 02:13 Completed Multi-Disciplinary Progress Notes: Multi-Disciplinary Progress Notes 11/05/21 15:02 Respiratory Note by Ashleigh Dimas O2 Sat 99% on 4LPM NC. Decreased to 3LPM NC. Initialized on 11/05/21 15:02 - END OF NOTE 11/05/21 11:16 Case Management Note by Nilsa Sanchez PATIENT SLEEPING- NO DISTURBED AT THIS TIME FOR CM DISCUSSION PRE REQUEST OF NURSE Initialized on 11/05/21 11:16 - END OF NOTE Assessment/Plan (1) Atrial fibrillation with RVR Current Visit: Yes Status: Acute Assessment & Plan: continue xarelto, give po cardizem cd 240mg daily and d/c drip this am. rate slightly increases with nebs but this is tolerable due to copd exacerbation. Code(s): I48.91 - UNSPECIFIED ATRIAL FIBRILLATION (2) COPD exacerbation Current Visit: Yes Status: Acute Assessment & Plan: significant wheezing on exam, solu medrol 80mg IV q6 hrs continue with rocephin/zithromax and neb treatments. Code(s): J44.1 - CHRONIC OBSTRUCTIVE PULMONARY DISEASE W (ACUTE) EXACERBATION
[2021-11-06] MEDS: Cardizem CD PO SCH (08:44)
[2021-11-06] MEDS: ROCEPHIN 1 Gm-D5w 50 ml Bag** 1 G/50 ML IVPB IV SCH (08:45)
[2021-11-06] MEDS: Lopressor 50 MG PO SCH ×2 (08:45→22:55)
[2021-11-06] MEDS: Zithromax 500 MG/ 250 ML NaCl Premix 500 MG/250 ML IVPB IV SCH (09:27)
[2021-11-06] MEDS: Mucinex 600MG ER Tabs PO SCH ×2 (09:28→22:55)
[2021-11-06] MEDS ORDERED: solu-MEDROL ONE ×2 (11:27→16:06)
[2021-11-06] MEDS ORDERED: Paxil 20 MG PO SCH ×2 (14:00)
[2021-11-06] MEDS: XARELTO 10 MG TABLET PO SCH (17:01)
[2021-11-07] MEDS: DUONEB 0.5-3 MG/3 ml Neb IH SCH ×2 (03:33→06:36)
[2021-11-07 04:59] LABS: Absolute Neutrophil Ct (ANC) 18.94 x10^3/uL (1.4-6.9); Basophil (Absolute #) 0.02 x10^3/uL (0-0.4); Eosinophil (Absolute #) 0 x10^3/uL (0-0.5); Hematocrit 44.7 % (42-50); Hemoglobin 14.7 g/dL (12.5-18.0); Lymphocyte (Absolute #) 1.48 x10^3/uL (1.0-4.6); Mean Cell Volume 93.7 fL (78-100); Mean Corpuscular Hemoglobin 30.8 pg (26-32); Mean Corpuscular Hgb Concent. 32.9 g/dL (32-36); Mean Platelet Volume 10.2 fL (7.5-11.0); Monocytes % 2.4 % (0.0-12.0); Neutrophil % 89.7 % (36.0-66.0); Platelet Count 251 x10^3/uL (150-450); Red Blood Count 4.77 x10^6/uL (4.1-5.6); Red Cell Distribution Width 12.9 % (11.5-14.0); White Blood Count 21.1 x10^3/uL (4.0-10.5)
[2021-11-07 05:36] LABS: ANION GAP 9.6 MEQ/L (5-15); BLOOD UREA NITROGEN 17 mg/dL (9-20); CHLORIDE 102 mmol/L (98-107); Calcium 9.3 mg/dL (8.4-10.2); Carbon Dioxide 30 mmol/L (22-30); Creatinine 1 0.61 mg/dL (0.66-1.25); EST GLOMERULAR FILTRATION RATE > 60.0 ML/MIN; Glucose 184 mg/dL (74-106); Potassium 4.2 mmol/L (3.5-5.1); SODIUM 137 mmol/L (137-145)
[2021-11-07] MEDS: solu-MEDROL 80 MG, Sterile H2O 10 ml 2 ML IV SCH ×2 (06:33)
[2021-11-07] MEDS: Lactated Ringers 1,000 ML IV SCH (07:04)
[2021-11-07 08:40] VITALS: BP 143/84; PULSE 102; O2SAT 90
[2021-11-07] MEDS: Cardizem CD PO SCH (09:02)
[2021-11-07] MEDS: Lopressor 50 MG PO SCH (09:02)
[2021-11-07] MEDS: Mucinex 600MG ER Tabs PO SCH (09:02)
[2021-11-07] MEDS: XARELTO 10 MG TABLET PO SCH (09:04)
--- NOTE | 2021-11-07 09:14 | PCM.DS ---
Discharge Summary Date of Admission: 11/05/21 04:25 Admitting Physician: REKHA ALANIZ Primary Care Provider: FARNAZ ROJAS Allergies Allergies No Known Drug Allergies Allergy (Verified 11/04/21 22:05) Hospital Summary - Hospital Course Hospital Course: patient admitted and treated for a fib with rvr and copd exacerbation. has home oxygen, admits to noncompliance with meds. heart rate controlled with po cardizem and metoprolol which he is prescribed at home. lungs improved with abx and steroids. home on po prednisone with resumption of po meds for rate control and xarelto. stressed importance of compliance - Vitals & Intake/Output Vital Signs: Vital Signs Temperature 96.9 F 11/07/21 08:00 Pulse Rate 102 H 11/07/21 08:00 Respiratory Rate 11/07/21 08:00 Blood Pressure 143/84 11/07/21 08:00 O2 Sat by Pulse Oximetry 90 L 11/07/21 08:00 Intake & Output: Intake & Output 11/04/21 11/05/21 11/06/21 11/07/21 11:59 11:59 11:59 11:59 Intake Total 480 4281 1320 Output Total 1700 3200 4000 Balance -1220 1081 -2680 Weight 130.8 kg - Lab Result Diagrams: 11/07/21 04:30 11/07/21 04:30 Lab Results-Last 24 Hrs: Lab Results-Last 24 Hours 11/07/21 11/07/21 Range/Units 04:30 04:30 WBC 21.1 H (4.0-10.5) x10^3/uL RBC 4.77 (4.1-5.6) x10^6/uL Hgb 14.7 (12.5-18.0) g/dL Hct 44.7 (42-50) % MCV 93.7 (78-100) fL MCH 30.8 (26-32) pg MCHC 32.9 (32-36) g/dL RDW 12.9 (11.5-14.0) % Plt Count 251 (150-450) x10^3/uL MPV 10.2 (7.5-11.0) fL Gran % 89.7 H (36.0-66.0) % Immature Gran % (Auto) 0.8 H (0.00-0.4) % Nucleat RBC Rel Count 0.0 (0.00-0.1) % Eos # (Auto) 0 (0-0.5) x10^3/uL Immature Gran # (Auto) 0.17 H (0.00-0.03) x10^3u/L Absolute Lymphs (auto) 1.48 (1.0-4.6) x10^3/uL Absolute Monos (auto) 0.50 (0.0-1.3) x10^3/uL Absolute Nucleated RBC 0.00 (0.00-0.01) x10^3u/L Lymphocytes % 7.0 L (24.0-44.0) % Monocytes % 2.4 (0.0-12.0) % Eosinophils % 0.0 (0.00-5.0) % Basophils % 0.1 (0.0-0.4) % Absolute Granulocytes 18.94 H (1.4-6.9) x10^3/uL Basophils # 0.02 (0-0.4) x10^3/uL Sodium 137 (137-145) mmol/L Potassium 4.2 (3.5-5.1) mmol/L Chloride 102 (98-107) mmol/L Carbon Dioxide 30 (22-30) mmol/L Anion Gap 9.6 (5-15) MEQ/L BUN 17 (9-20) mg/dL Creatinine 0.61 L (0.66-1.25) mg/dL Estimated GFR > 60.0 ML/MIN Glucose 184 H (74-106) mg/dL Calcium 9.3 (8.4-10.2) mg/dL Magnesium 2.0 (1.6-2.3) mg/dL - Procedures and Test Procedures and Tests throughout Hospitalization: Therapy Orders & Screens 11/04/21 23:04 Respiratory Therapy Assessment DAILY Comment: 11/05/21 04:39 EKG REPEAT IN AM Comment: Oxygen Nasal Cannula 2 lpm Comment: Respiratory Therapy Consult ROUTINE Comment: Reason For Exam: 11/05/21 05:29 RT Screen per Nursing Assess ONCE Comment: Protocol Order Physician Instructions: Greater than 3 points order RT Admission Screen Reason For Exam: Triggered on Admission Diagnosis: AFIB RVR Diagnosis: AFIB RVR Pneumonia: No Home O2: Yes Asthma: Yes CHF: Yes Home CPAP/BIPAP: No Home Nebs/MDI: Yes Total Points: 17 Discharge Exam General Appearance: obese Neurologic Exam: alert, oriented x 3 Respiratory Exam: diminished breath sounds, prolonged expirations, No accessory muscle use, No rhonchi, No wheezing Cardiovascular Exam: irregular Gastrointestinal/Abdomen Exam: soft, No tenderness, No mass Extremity Exam: normal inspection, normal range of motion Skin Exam: normal color, warm, dry Final Diagnosis/Problem List - Final Discharge Diagnosis/Problem (1) Atrial fibrillation with RVR Current Visit: Yes Status: Acute Code(s): I48.91 - UNSPECIFIED ATRIAL FIBRILLATION (2) COPD exacerbation Current Visit: Yes Status: Acute Code(s): J44.1 - CHRONIC OBSTRUCTIVE PULMONARY DISEASE W (ACUTE) EXACERBATION - Discharge Disposition: Home, Self-Care Condition: Fair Prescriptions: New Prednisone 20 mg [Deltasone 20 mg] 20 mg PO UD #18 tablet Doxycycline Hyclate 100 mg [Vibramycin 100 MG] 100 mg PO BID #14 tab Continue Rivaroxaban [Xarelto] 20 mg PO DAILY Albuterol Sulfate [Albuterol Sulfate Hfa] 2 puff PO Q4-6HPRN PRN PRN Reason: Shortness Of Breath Furosemide 20 mg [Lasix 20 mg] 20 mg PO BID Metoprolol Tartrate 50 mg PO BID Albuterol/Ipratropium 3ml Neb* [DUONEB 0.5-3 MG/3 ml Neb] 3 ml IH QID #120 unit PARoxetine HCL [Paroxetine HCl] 40 mg PO DAILY Diltiazem HCl [Diltiazem 24Hr ER] 240 mg PO DAILY Instructions: Atrial Fibrillation (DC) Follow up with: FARNAZ ROJAS [Primary Care Provider] - 11/14/21 9:00 am
[2021-11-07] MEDS ORDERED: Paxil 20 MG PO SCH (10:00)
== END 2021-11-07 09:30 | disposition home or self-care (01) | DRG 309 ==
LOC: ED 21:46 → ICU 11-05 04:25
PROVIDERS: ADMIT Family Medicine; ATTEND Family Medicine
DX: I48.20 Chronic atrial fibrillation, unspecified (principal); J44.1 Chronic obstructive pulmonary disease with (acute) exacerbation; J96.11 Chronic respiratory failure with hypoxia; I10 Essential (primary) hypertension; R00.0 Tachycardia, unspecified; Z99.81 Dependence on supplemental oxygen; Z91.14 Patient's other noncompliance with medication regimen; Z79.899 Other long term (current) drug therapy; Z20.828 Contact with and (suspected) exposure to other viral communicable diseases; Z72.0 Tobacco use
CPT/HCPCS: 0241U; 36000; 36415; 71045; 71260; 80048; 80053; 83735; 83880; 84484; 85025; 85379; 93005; 93041; 94640; 94762; 96365; 96366; 96374; 96375; 96376; 99285; 99291; J0456; J0696; J2930; A9270-GY